=== PATIENT | female | born 1955 | race Caucasian/White ===

== ENCOUNTER → 2020-04-21 16:03 | Outpatient (CLI) | payer BC, SELFPAY ==
--- NOTE | ~2020-04-21 | MM_ITS ---
EXAMINATION: MM screening [facility] BI w abilio HISTORY: Screening mammogram TECHNIQUE: Craniocaudal and mediolateral oblique 3-D tomosynthesis images were obtained and synthetic 2-D images were generated. CAD analysis was submitted and interpreted. COMPARISON: 03/03/2019, 02/16/2018, 02/14/2017 bilateral digital screening mammogram examinations BREAST PARENCHYMAL COMPOSITION: There are scattered areas of fibroglandular density. FINDINGS: An intramammary lymph node is noted in the upper outer quadrant of each breast. Minimal oh ign calcification is noted. There is no evidence of suspicious mass, calcification, or architectural distortion to suggest malignancy in either breast. There has been no suspicious interval change. IMPRESSION: 1. No mammographic evidence of malignancy. 2. Recommend routine screening mammography in one year. BI-RADS Category 2: Benign finding(s). Reviewed, dictated and finalized at location A.
== END ==
PROVIDERS: PCP Internal Medicine; Visit Provider Obstetrics & Gynecology Gynecology
DX: Z12.31 Encounter for screening mammogram for malignant neoplasm of breast (principal)
CPT/HCPCS: 77063; 77067

== ENCOUNTER → 2020-08-30 12:05 | Outpatient (CLI) | payer BC, SELFPAY ==
--- NOTE | ~2020-08-30 | DEXA_ITS ---
Bone Density Report Name: Shreya Palomino Age: 64 Sex: Female Ethnicity: White Date of : 1955 Indication: postmenopausal; screening for osteoporosis; Referring Provider: MIGUEL MCKEON Study: Bone densitometry was performed. Exam Date: August 30, 2020 Accession number: [id number] Bone Density: Region BMD T-score Z-score Classification AP Spine (L1-L4) 1.109 0.6 2.2 Normal Femoral Neck (Left) 0.803 -0.4 1.0 Normal Total Hip (Left) 1.117 1.4 2.6 Normal Femoral Neck (Right) 0.807 -0.4 1.1 Normal Total Hip (Right) 1.102 1.3 2.5 Normal Total Hip Mean 1.110 1.4 2.6 Normal World Health Organization criteria for BMD impression classify patients as: Normal (T-score at or above -1.0), Osteopenia (T-score between -1.0 and -2.5), or Osteoporosis (T-score at or below -2.5). 10-year Fracture Risk: FRAX not reported because: All T-scores for Spine Total, Hip Total, Femoral Neck at or above -1.0 Previous Exams: Region Exam Age BMD T-score BMD Change BMD Change Date g/cm2 vs Baseline vs Previous AP Spine(L1-L4) 08/30/2020 64 1.109 0.6 -0.052* -0.001 02/10/2017 61 1.109 0.6 -0.051* -0.027* 01/30/2014 58 1.137 0.8 -0.024* -0.001 01/08/2010 54 1.138 0.8 -0.022 -0.022 12/24/2006 51 1.160 1.0 Total Hip(Left) 08/30/2020 64 1.117 1.4 0.019 0.062* 02/10/2017 61 1.055 0.9 -0.043* -0.029* 01/30/2014 58 1.084 1.2 -0.014 0.001 01/08/2010 54 1.083 1.2 -0.015 -0.015 12/24/2006 51 1.098 1.3 Total Hip(Right) 08/30/2020 64 1.102 1.3 -0.007 0.017 02/10/2017 61 1.085 1.2 -0.024 -0.044* 01/30/2014 58 1.128 1.5 0.020 0.041* 01/08/2010 54 1.088 1.2 -0.021 -0.021 12/24/2006 51 1.108 1.4 *Denotes significance at 95% confidence level, LSC for AP Spine = 0.022 g/cm2, LSC for Total Hip = 0.027 g/cm2 Clinical Information Provided by Patient: Has used the following medications: Vitamin D, Calcium, MTV Patient maximum height was 64.5 Menopause Age: 48 No regular weight bearing exercise Does not regularly consume dairy products Drinks caffeinated beverages Onset of menses at age 13 Number of children 2 Impression: The patient has normal bone mass. No significant bone lo
== END ==
PROVIDERS: PCP Internal Medicine; Visit Provider Obstetrics & Gynecology Gynecology
DX: Z78.0 Asymptomatic menopausal state (principal)
CPT/HCPCS: 77080

== ENCOUNTER → 2021-04-23 07:20 | Outpatient (CLI) | payer BC, SELFPAY ==
--- NOTE | ~2021-04-23 | MM_ITS ---
EXAMINATION: MM screening [facility] BI w abilio HISTORY: Screening TECHNIQUE: Craniocaudal and mediolateral oblique 3-D tomosynthesis images were obtained and synthetic 2-D images were generated. CAD analysis was submitted and interpreted. COMPARISON: Comparison to multiple prior studies sequentially, with oldest reviewed study dated 02/18. BREAST PARENCHYMAL COMPOSITION: There are scattered areas of fibroglandular density. FINDINGS: There is no evidence of suspicious mass, calcification, or architectural distortion to sugg est malignancy in either breast. There has been no suspicious interval change. IMPRESSION: 1. No mammographic evidence of malignancy. 2. Recommend routine screening mammography in one year. BI-RADS Category 1: Negative Reviewed, dictated and finalized at location A.
== END ==
PROVIDERS: PCP Internal Medicine; Visit Provider Obstetrics & Gynecology Gynecology
DX: Z12.31 Encounter for screening mammogram for malignant neoplasm of breast (principal)
CPT/HCPCS: 77063; 77067

== ENCOUNTER → 2022-04-25 16:05 | Outpatient (CLI) | payer BC, SELFPAY ==
--- NOTE | ~2022-04-25 | MM_ITS ---
EXAMINATION: MM screening [facility] BI w abilio HISTORY: Screening TECHNIQUE: Craniocaudal and mediolateral oblique 3-D tomosynthesis images were obtained and synthetic 2-D images were generated. CAD analysis was submitted and interpreted. COMPARISON: Comparison to multiple prior studies sequentially, with oldest reviewed study dated 02/18. BREAST PARENCHYMAL COMPOSITION: There are scattered areas of fibroglandular density. FINDINGS: There is no evidence of suspicious mass, calcification, or architectural distortion to sugg est malignancy in either breast. There has been no suspicious interval change. IMPRESSION: 1. No mammographic evidence of malignancy. 2. Recommend routine screening mammography in one year. BI-RADS Category 1: Negative Reviewed, dictated and finalized at location A.
== END ==
PROVIDERS: PCP Internal Medicine; Visit Provider Obstetrics & Gynecology Gynecology
DX: Z12.31 Encounter for screening mammogram for malignant neoplasm of breast (principal)
CPT/HCPCS: 77063; 77067

== ENCOUNTER → 2023-06-07 10:26 | Outpatient (CLI) | payer MEDICARE, SELFPAY ==
--- NOTE | ~2023-06-07 | MM_ITS ---
EXAMINATION: MM screening [facility] BI w abilio HISTORY: Screening mammogram TECHNIQUE: Craniocaudal and mediolateral oblique 3-D tomosynthesis images were obtained and synthetic 2-D images were generated. CAD analysis was submitted and interpreted. COMPARISON: 04/25/2022, 04/23/2021, 04/21/2020 bilateral screening mammogram examinations BREAST PARENCHYMAL COMPOSITION: There are scattered areas of fibroglandular density. FINDINGS: There is no evidence of suspicious mass, calcification, or architectural distortion to sugg est malignancy in either breast. There has been no suspicious interval change. IMPRESSION: 1. No mammographic evidence of malignancy. 2. Recommend routine screening mammography in one year. BI-RADS Category 1: Negative Reviewed, dictated and finalized at location A.
== END ==
PROVIDERS: PCP Internal Medicine; Visit Provider Obstetrics & Gynecology Gynecology
DX: Z12.31 Encounter for screening mammogram for malignant neoplasm of breast (principal)
CPT/HCPCS: 77063; 77067

== ENCOUNTER → 2023-06-26 09:58 | Outpatient (CLI) | payer MEDICARE, SELFPAY ==
--- NOTE | ~2023-06-26 | DEXA_ITS ---
Bone Density Report Name: JACKELYN FUENTES Age: 67 Sex: Female Ethnicity: White Date of : 1955 Indication: postmenopausal; screening for osteoporosis; height loss; Referring Provider: MIGUEL MCKEON Study: Bone densitometry was performed. Exam Date: June 26, 2023 Accession number: [id number] Bone Density: Region BMD T-score Z-score Classification AP Spine (L1-L4) 1.127 0.7 2.6 Normal Femoral Neck (Left) 0.752 -0.9 0.7 Normal Total Hip (Left) 1.138 1.6 2.9 Normal Femoral Neck (Right) 0.783 -0.6 1.0 Normal Total Hip (Right) 1.140 1.6 2.9 Normal Total Hip Mean 1.139 1.6 2.9 Normal World Health Organization criteria for BMD impression classify patients as: Normal (T-score at or above -1.0), Osteopenia (T-score between -1.0 and -2.5), or Osteoporosis (T-score at or below -2.5). 10-year Fracture Risk: FRAX not reported because: All T-scores for Spine Total, Hip Total, Femoral Neck at or above -1.0 Previous Exams: Region Exam Age BMD T-score BMD Change BMD Change Date g/cm2 vs Baseline vs Previous AP Spine(L1-L4) 06/26/2023 67 1.127 0.7 -0.034 0.018 08/30/2020 64 1.109 0.6 -0.052* -0.001 02/10/2017 61 1.109 0.6 -0.051* -0.027* 01/30/2014 58 1.137 0.8 -0.024* -0.001 01/08/2010 54 1.138 0.8 -0.022 -0.022 12/24/2006 51 1.160 1.0 Total Hip(Left) 06/26/2023 67 1.138 1.6 0.040 0.021 08/30/2020 64 1.117 1.4 0.019 0.062* 02/10/2017 61 1.055 0.9 -0.043* -0.029* 01/30/2014 58 1.084 1.2 -0.014 0.001 01/08/2010 54 1.083 1.2 -0.015 -0.015 12/24/2006 51 1.098 1.3 Total Hip(Right) 06/26/2023 67 1.140 1.6 0.032 0.039 08/30/2020 64 1.102 1.3 -0.007 0.017 02/10/2017 61 1.085 1.2 -0.024 -0.044* 01/30/2014 58 1.128 1.5 0.020 0.041* 01/08/2010 54 1.088 1.2 -0.021 -0.021 12/24/2006 51 1.108 1.4 *Denotes significance at 95% confidence level, LSC for AP Spine = 0.022 g/cm2, LSC for Total Hip = 0.027 g/cm2 Clinical Information Provided by Patient: Has used the following medications: Vitamin D, Calcium, MTV Patient maximum height was 65.0 Menopause Age: 48 No regular weight bearing exercise Drinks caffeinated beverages Onset of menses at age
== END ==
PROVIDERS: PCP Internal Medicine; Visit Provider Obstetrics & Gynecology Gynecology
DX: Z78.0 Asymptomatic menopausal state (principal)
CPT/HCPCS: 77080

== ENCOUNTER 2023-08-01 07:41 | Outpatient (CLI) | payer MEDICARE, SELFPAY ==
--- NOTE | ~2023-08-01 | CT_ITS ---
EXAMINATION: CT abdomen pelvis w con INDICATION: Abdominal pain TECHNIQUE: Computed tomographic images of the abdomen and pelvis were obtained after the administrati on of 100 cc of Omnipaque 350 intravenous contrast. The dose-length product (DLP) was 1200.28 mGy-cm. Automated exposure control and iterative reconstruction technique were employed. COMPARISON: 05/27/2019 FINDINGS: Minimal dependent atelectasis is present in the lung bases. The heart size is normal. Lord es of aortic and mitral valve replacement are noted. The liver, spleen, pancreas, gallbladder, and ad renal glands are normal. The kidneys are unremarkable. No pathologically enlarged abdominal or pelvic lymph nodes are identified. No free intraperitoneal gas or evidence of bowel obstruction. The append ix is normal. There is severe lumbar spondylosis. IMPRESSION: 1. No CT correlate for the patient's symptoms. Reviewed, dictated and finalized at location B. K PATCHER
[2023-08-01 08:09] LABS: Estimated Glomerular Filt Rate > 60
== END 2023-08-01 07:42 | disposition home or self-care (01) ==
PROVIDERS: PCP Internal Medicine; Visit Provider Internal Medicine
DX: R10.9 Unspecified abdominal pain (principal)
CPT/HCPCS: 74177; Q9967

== ENCOUNTER 2023-08-31 01:52 | Day surgery (SDC) | payer MEDICARE, SELFPAY ==
[2023-08-27 10:33] VITALS: BMI 34.0
--- NOTE | 2023-08-29 09:51 | SUR.PREOP ---
Patient called regarding upcoming procedure. Message left on patient's voicemail regarding preop instructions, appointment times, and procedure prep.
--- NOTE | 2023-08-30 17:49 | PM.HPGS ---
History of Present Illness History of Present Illness Consent: Risks, benefits, and alternatives have been discussed and questions answered. Patient agrees to proceed with procedure. Chief complaint: hx colon polyps Narrative: Shreya Palomino is a 67 year old female Referred for colon cancer screening. She has a history of colon polyps. Also she has a family history of colon cancer. A grandparent on 1 side Of the family, and a uncle on her other side had colon cancer. 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 Hiatal hernia Irritable bowel syndrome with constipation Low back pain Surgical History Surgical History History of section 1983,1984 History of elbow surgery 08/2018 History of gynecologic surgery 1982-Micro surgery on fallopian tubes. History of open heart surgery 2 valves 07/12/19 History of shoulder surgery 04/2018 History of sinus surgery 0217-6305 History of tubal ligation 3759-1064 Family History Family History Mother Family history of chronic obstructive pulmonary disease Grandparent Carcinoma of colon Father Family history of diabetes mellitus in first degree relative Family history of malignant neoplasm of brain Family history of heart disease in male family member before age 55 Sibling Family history of diabetes mellitus in first degree relative Family history of lung cancer Social History Social History Social History: Caffeine-coffee Smoking status: Never smoker Alcohol intake: never Substance use: never Substance use type: does not use Lack of Transportation: No Lack of Food: Never True Current Housing: I Have Housing Concerned About Future Housing: No Difficulty Paying Gas/Electric Bills: No Difficulty Paying for Meds: No Currently Unemployed: No Education: Associate Degree Difficulty w/ Childcare or Family Care: No Living arrangements: with family Additional living arrangements comments: , daughter and grandkids 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ucation: occupation Additional occupation/education comments: [employer] Gender identity (if verbalized by the patient): Female Spiritual care concerns: No Agree to blood products: Yes Meds Home Medications and Allergies Home Medications Medication Instructions Recorded Confirmed Type calcium phosphate,dibasic 77 1 tablet PO DAILY 10/10/19 08/31/23 History mg-vitamin D3 400 unit tablet cetirizine 10 mg capsule (Zyrtec) 10 mg PO DAILY 10/10/19 08/31/23 History multivitamin 1 tablet PO DAILY 10/10/19 08/31/23 History aspirin 81 mg tablet,delayed 81 mg PO DAILY 10/21/19 08/31/23 History release (Adult Low Dose Aspirin) fluticasone propionate 50 2 spray intranasal DAILY 10/21/19 08/31/23 History mcg/actuation nasal spray,suspension meloxicam 15 mg tablet 15 mg PO DAILY 10/21/19 08/31/23 History valacyclovir 500 mg tablet 500 mg PO DAILY 10/21/19 08/31/23 History (Valtrex) montelukast 10 mg tablet 10 mg PO DAILY 03/09/21 08/31/23 History cefdinir 300 mg capsule 300 mg PO Q12H 06/14/23 08/31/23 History esomeprazole magnesium 40 mg 40 mg PO DAILY 06/14/23 08/31/23 History capsule,delayed release losartan 100 mg tablet 50 mg PO DAILY 06/14/23 08/31/23 History rosuvastatin 20 mg tablet 20 mg PO DAILY 06/14/23 08/31/23 History azelastine 137 mcg (0.1 %) nasal 2 spray intranasal BID 08/27/23 08/31/23 History spray aerosol bisacodyl 5 mg tablet,delayed 10 mg PO HS 08/27/23 08/31/23 History release
[2023-08-31 09:12] VITALS: BP 141/85; PULSE 88; RESP 18; TEMP 35.9; O2SAT 97
[2023-08-31] MEDS: LACTATED RINGERS 1,000 ML 150 ML IV CONT (09:25)
[2023-08-31] MEDS: GENTAMICIN 80MG/SOD CHL 50 ML 80 MG/50 ML BAG 100 MG IVPB (09:32)
[2023-08-31] MEDS: AMPICILLIN 2 GM/NS 100 ML 2 GM/100 ML BAG IVPB (09:37)
--- NOTE | 2023-08-31 10:10 | WPDANESEPPF ---
Anes - Initial Pre Proc Eval Procedure: Operation Date: 08/31/23 10:30 Proposed Procedures p Colonoscopy - Ollie Blandon MD Date/Time: 08/31/23 10:10 Surgeon: Ollie Blandon MD Pre Op Diagnosis: hx colon polyps Patient Data Age: 67 Gender: F Height: 1.63 m Weight: 90.3 kg Last Vital Signs Temp 96.7 F L 08/31/23 09:12 Pulse 88 08/31/23 09:12 Resp 18 08/31/23 09:12 BP 141/85 H 08/31/23 09:12 Pulse Ox 97 08/31/23 09:12 O2 Del Method Room Air 08/31/23 09:12 Allergies Allergy/AdvReac Type Severity Reaction Status Date / Time amlodipine Allergy Intermediate Swelling Verified 08/31/23 09:09 Home Medications Medication Instructions Recorded Confirmed Type calcium phosphate,dibasic 77 1 tablet PO DAILY 10/10/19 08/31/23 History mg-vitamin D3 400 unit tablet cetirizine 10 mg capsule (Zyrtec) 10 mg PO DAILY 10/10/19 08/31/23 History multivitamin 1 tablet PO DAILY 10/10/19 08/31/23 History aspirin 81 mg tablet,delayed 81 mg PO DAILY 10/21/19 08/31/23 History release (Adult Low Dose Aspirin) fluticasone propionate 50 2 spray intranasal DAILY 10/21/19 08/31/23 History mcg/actuation nasal spray,suspension meloxicam 15 mg tablet 15 mg PO DAILY 10/21/19 08/31/23 History valacyclovir 500 mg tablet 500 mg PO DAILY 10/21/19 08/31/23 History (Valtrex) montelukast 10 mg tablet 10 mg PO DAILY 03/09/21 08/31/23 History cefdinir 300 mg capsule 300 mg PO Q12H 06/14/23 08/31/23 History esomeprazole magnesium 40 mg 40 mg PO DAILY 06/14/23 08/31/23 History capsule,delayed release losartan 100 mg tablet 50 mg PO DAILY 06/14/23 08/31/23 History rosuvastatin 20 mg tablet 20 mg PO DAILY 06/14/23 08/31/23 History azelastine 137 mcg (0.1 %) nasal 2 spray intranasal BID 08/27/23 08/31/23 History spray aerosol bisacodyl 5 mg tablet,delayed 10 mg PO HS 08/27/23 08/31/23 History release Patient hx anesthesia problems: none Family hx anesthesia problems: none Results Review: All pre-operative results and documents have been reviewed as part of the pre-operative evaluation. 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 Hiatal hernia Irritable bowel syndrome with constipation Low back pain Surgical History Surgical History History of section 1983,1984 History of elbow surgery 08/2018 History of gynecologic surgery 1982- surgery on fallopian tubes. History of open heart surgery 2 valves 07/12/19 History of shoulder surgery 04/2018 History of sinus surgery [id number] History of tubal ligation 9877-7024 Family History Family History Mother Family history of chronic obstructive pulmonary disease Grandparent Carcinoma of colon Father Family history of diabetes mellitus in first degree relative Family history of malignant neoplasm of brain Family history of heart disease in male family member before age 55 Sibling Family history of diabetes mellitus in first degree relative Family history of lung cancer Social History Social History Social History: Caffeine-coffee Smoking status: Never smoker Alcohol intake: never Substance use: never Substance use type: does not use Lack of Transportation: No Lack of Food: Never True Current Housing: I Have Housing Concerned About Future Housing: No Difficulty Paying Gas/Electric Bills: No Difficulty Paying for Meds: No Currently Unemployed: No Education: Associate Degree Difficulty w/ Childcare or Family Care: No Living arrangements: with family Additional living arrangements comments: , daughter and grandkids 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
[2023-08-31 10:34] VITALS: BP 98/64; PULSE 67; RESP 17; O2SAT 99
[2023-08-31 10:44] VITALS: BP 113/62; PULSE 64; RESP 18; O2SAT 100
[2023-08-31 10:54] VITALS: BP 112/72; PULSE 68; RESP 187; O2SAT 100
== END 2023-08-31 11:14 | disposition home or self-care (01) ==
PROVIDERS: PCP Internal Medicine; Visit Provider Internal Medicine Gastroenterology
PROC: 0DJD8ZZ Inspection of Lower Intestinal Tract, Via Natural or Artificial Opening Endoscopic (ICD-10-PCS; CPT 45378; principal; 2023-08-31 10:30)
DX: Z12.11 Encounter for screening for malignant neoplasm of colon (principal); K57.30 Diverticulosis of large intestine without perforation or abscess without bleeding; K64.8 Other hemorrhoids; Z86.010 Personal history of colon polyps; K58.1 Irritable bowel syndrome with constipation; Q23.1 Congenital insufficiency of aortic valve; Z79.82 Long term (current) use of aspirin; E66.9 Obesity, unspecified; Z68.34 Body mass index [BMI] 34.0-34.9, adult
CPT/HCPCS: G0105; J0290; J1580; J2704; J7120

== ENCOUNTER 2024-07-09 11:10 | Outpatient (CLI) | payer MEDICARE, SELFPAY ==
--- NOTE | ~2024-07-09 | MM_ITS ---
EXAMINATION: MM screening [facility] BI w abilio HISTORY: Screening TECHNIQUE: Craniocaudal and mediolateral oblique 3-D tomosynthesis images were obtained and synthetic 2-D images were generated. CAD analysis was submitted and interpreted. COMPARISON: Comparison to multiple prior studies sequentially, with oldest reviewed study dated 02/16. BREAST PARENCHYMAL COMPOSITION: Not dense: There are scattered areas of fibroglandular density. FINDINGS: There is no evidence of suspicious mass, calcification, or architectural distortion to sugg est malignancy in either breast. There has been no suspicious interval change. IMPRESSION: 1. No mammographic evidence of malignancy. 2. Recommend routine screening mammography in one year. BI-RADS Category 1: Negative Reviewed, dictated and finalized at location B.
== END 2024-07-09 11:11 | disposition home or self-care (01) ==
LOC: MICIMG 11:11
PROVIDERS: PCP Internal Medicine; Visit Provider Obstetrics & Gynecology Gynecology
DX: Z12.31 Encounter for screening mammogram for malignant neoplasm of breast (principal)
CPT/HCPCS: 77063; 77067

== ENCOUNTER 2025-02-04 00:27 | Day surgery (SDC) | payer MEDICARE, SELFPAY ==
[2025-01-30 10:35] VITALS: BMI 34.3
--- OUTSIDE RECORDS SUMMARY | 2025-02-04 00:30 | XMS_ITS | Encounter Summary ---
Author Organization [facility] Address [address] [place] [address] Phone Care Team Providers Care Supervisor Process Testing Name Role Phone Gilbert Aguirre MD Primary Care Provider [phone] Gilbert Aguirre MD Unavailable [phone] Helen Sharp RN Unavailable Unavailab Chris Munguia MD Unavailable [phone] Encounter Details Date Type Department Care Team (Late st Contact Info) Description 01/08/2025 Telephone [facility] Cardiology [address] [place] [address] [place] [address] Chris Priest MD [address] [place] [address] Social History Tobacco Use Types Packs/Day Years Used Date Smoking Tobacco: Never Passive Smoke Exposure: Past Smokeless Tobacco: Never Alcohol Use Standard Drinks/Week Comments No 0 (1 standard drink = 0.6 oz pur e alcohol) PHQ-2 Answer Date Recorded PHQ-2 Score 0 05/15/2019 Comments No Sex and Gender Information Value Date Recorded Sex Assigned at Not on file 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 Pt in agreement. * Telephone Encounter - Victoria rAaya - 01/08/2025 1:49 PM CDT Zayda Pt returning call in regards to Echo. She would like to know if you have anything for tomorrow morning. documented in this encounter Plan of Treatment Not on file documented as of this encounter Goals Goal Patient Goal Type Associated Problems Recent Progress Patient-Stated? Author [facility] Yes Jolly Broderick, EBER Note: Pt would like to be more active without a lot of pain. documented as of this encounter Visit Diagnoses Not on filedocumented in this encounter Care Teams Supervisor Process Testing Relationship Specialty Start Date End Date Gilbert Aguirre MD PCP - General 07/14/19 Gilbert Aguirre MD Internal Medicine 07/14/19 Helen Sharp, EBER Registered Nurse Pain Management 10/08/17 Chris Priest MD Household Appliance Installer Cardiology 07/09/19 documented as of this encounter
--- OUTSIDE RECORDS SUMMARY | 2025-02-04 00:30 | XMS_ITS | Encounter Summary ---
Author Organization [facility] [place] [facility] Address [address] [place] [address] Phone Care Team Providers Care Retail District Manager Name Role Phone Gilbert Aguirre MD Primary Care Provider [phone] Gilbert Aguirre MD Unavailable [phone] Helen Sharp RN Unavailable Unavailab Chris Munguia MD Unavailable [phone] Encounter Details Date Type Department Care Team (Late st Contact Info) Description 01/15/2025 Telephone [facility] Cardiology [address]th [place] [address] [place] [address] Chris Priest MD [address] [place] [address] Social History Tobacco Use Types [...] on file 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 I spoke with pt and awaiting input from his partner, and review per Dr. Priest. * Telephone Encounter - Mary Flores - 01/15/2025 10:09 AM CDT Zayda Pt would like a call back to get test results. Pls call. documented in this encounter Plan of Treatment Not on file documented as of this encounter Goals Goal Patient Goal Type Associated Problems Recent Progress Patient-Stated? Author BH-Pain Behavioral Health Yes Jolly Broderick, EBER Note: Pt would like to be more active without a lot of pain. documented as of this encounter Visit Diagnoses Not on filedocumented in this encounter Care Teams Retail District Manager Relationship Specialty Start Date End Date Gilbert Aguirre MD PCP - General 07/14/19 Gilbert Aguirre MD Internal Medicine 07/14/19 Helen Sharp, EBER Registered Nurse Pain Management 10/08/17 Chris Priest MD Center Medical And Lab Director Cardiology 07/09/19 documented as of this encounter
--- OUTSIDE RECORDS SUMMARY | 2025-02-04 00:30 | XMS_ITS | Encounter Summary ---
Author Organization [place] [facility] Address [address] [place] [address] Phone Care Team Providers Care Stone Mill Operator Name Role Phone Gilbert Aguirre MD Primary Care Provider [phone] Gilbert Aguirre MD Unavailable [phone] Helen Sharp RN Unavailable Unavailab Chris Munguia MD Unavailable [phone] Encounter Details Date Type Department Care Team (Late st Contact Info) Description 01/06/2025 Results Follow-Up [facility] Cardiology [address] [facility] [address] Medicine [address] [place] [address] [place] [address] Chris Priest MD [address] [place] [address] Social History Tobacco Use Types [...] on file 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 Author [facility] Yes Jolly Broderick, RN Note: Pt would like to be more active without a lot of pain. documented as of this encounter Visit Diagnoses Not on filedocumented in this encounter Care Teams Stone Mill Operator Relationship Specialty Start Date End Date Gilbert Aguirre MD PCP - General 07/14/19 Gilbert Aguirre MD Internal Medicine 07/14/19 Helen Sharp, EBER Registered Nurse Pain Management 10/08/17 Chris Priest MD Rn Research Cardiology 07/09/19 documented as of this encounter
--- OUTSIDE RECORDS SUMMARY | 2025-02-04 00:30 | XMS_ITS | Clinical Summary ---
Author Organization [facility] Address [address] [place] [address] Care Team Providers Care Customer Experience Manager Name Role Phone Gilbert Aguirre MD Primary Care Provider [phone] Gilbert Aguirre MD Unavailable [phone] Helen Sharp RN Unavailable Unavailab Chris Munguia MD Unavailable [phone] Allergies Active Allergy Reactions Criticality Noted Date Comments Amlodipine Other (See comments) Low 01/12/2020 swelling Cefpodoxime Rash Medium 07/21/2020 Ceftriaxone Rash Medium 05/12/2020 Developed rash after 5 weeks of IV ceftriaxone in 2019, also had a rash on thighs when on ceftriaxone for 1 week in 04/2020. Ceftriaxone/cephalospori ns not contraindicated in the future, but should be monitored (can trial co-treating with cetirizine if she needs cephalosporins in the future) Ipratropium Analogues Other (See comments) Low 05/10/2022 Creates odd odor Medications fluticasone (FLONASE) 50 mcg/actuation nasal spray INHALE 2 SPRAYS IN EACH NOSTRIL TWICE DAILY 3 03/18/20 18 Active valACYclovir (VALTREX) 500 mg tablet Take 1 tablet (500 mg total) by mouth daily Active cetirizine (ZyrTEC) 10 mg tablet Take 1 tablet (10 mg total) by mouth daily Active aspirin 81 mg enteric coated tabletIndicatio ns:prevention of thrombosis Take 1 tablet (81 mg total) by mouth daily 30 tablet 1 07/12/20 19 Active calcium carb/vit D3/minerals (CALCIUM PLUS ORAL) Take by mouth WITH VITAMIN D (2 TABS DAILY) Active multivitamin capsule Take 1 capsule by mouth daily Active acetaminophen (TYLENOL) 500 mg tabletIndicatio ns:Pain Take 1 tablet (500 mg total) by mouth every 4 (four) hours as needed for pain Active esomeprazole DR (NexIUM) 40 mg capsuleIndicati ons:GERD Take 1 capsule (40 mg total) by mouth daily before breakfast RX: 148890 Active montelukast (SINGULAIR) 10 mg tablet Take 1 tablet (10 mg total) by mouth daily 03/29/20 20 Active senna (SENOKOT) 8.6 mg tablet Take 1 tablet by mouth daily Active econazole 1 % cream as needed 09/22/20 20 Active rosuvastatin (CRESTOR) 20 mg tablet daily 04/07/20 21 Active meloxicam (MOBIC) 15 mg tablet 05/16/20 21 Active azelastine (ASTELIN) 137 mcg (0.1 %) nasal sprayIndication s:Perennial Allergic Rhinitis,Season al Allergic Rhinitis Administer 2 sprays into each nostril 2 (two) times a day as needed for rhinitis Use in each nostril as directed 90 mL 3 05/14/20 24 025 Active cefdinir (OMNICEF) 300 mg capsuleIndicati ons:Chronic Suppression Take 1 capsule (300 mg total) by mouth 2 (two) times a day 180 capsule 3 05/22/20 24 025 Active losartan (COZAAR) 50 mg tablet Take 1 tablet (50 mg total) by mouth 2 (two) times a day 180 tablet 3 06/10/20 24 025 Active amLODIPine (NORVASC) 5 mg tablet Take 1 tablet (5 mg total) by mouth daily 30 tablet 11 08/01/20 19 020 Discontinued Active Problems Problem Noted Date Diagnosed Date History of mitral valve repl acement with bioprosthetic valve 04/26/2022 Lumbar spine pain 07/18/2021 Allergic rhinitis 02/09/2021 Bilateral hearing loss 12/10/2020 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 Remains on IV vancomycin with some mild nausea but this is improving. No cardiopulmonary complaints. Did have some fevers and fatigue last week, seen in ED with negative blood cultures. These symptoms have now resolved - Continue IV vancomycin with plans for 6 weeks of therapy for treatment of bacteremia and prosthetic valve endocarditis. Do no stop prior to next ID follow up - Plan to place patient on intermediate suppressive antibiotic therapy after IV antibiotics are complete given 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 No obvious signs of endocarditis on TTE/ANYA or PET scan but given recurrence of infection with same organisms in the presence of bioprosthetic heart valves it is likely these are seeded. Benefits of intermediate suppression significantly outweigh the risks. Unfortunately, the Strep isolate is now intermediate to penicillins. Will likely need a intermediate flouroquinolone such as levofloxacin. Will reach out to micro fellow regarding inferred susceptibility to levofloxacin based on gatifloxacin susceptibility. - Discussed with patient the rational for treatment, culture results, risk of recurrent infection, signs/symptoms of recurrent infection, and to contact ID clinic with any questions or concerns Assessment & Plan (05/08/2020 8:53 AM CDT): The patient has Streptococcus bacteremia. 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 She underwent bioprosthetic aortic and mitral valve replacement last year for this complication. With recurrent streptococcal bacteremia, there is concerned about recurrent endocarditis involving the bioprosthetic valves. Transthoracic echocardiogram did not demonstrate any vegetation. ANYA did not demonstrate any vegetations. Still could have endocarditis with nidus too small to visualize any vegetations. No features of abscess on ANYA Responding to antibiotics with absence of any symptoms or fever. Would recommending discussion with ID about utility of PET-CT scan to evaluate for active inflammation/infection in heart/valves and spine to localize source of recurrent bacteremia with S mitus Also, check Panorex dental films (pt asymptomatic). Assessment & Plan (05/07/2020 7:44 AM CDT): The patient has Streptococcus bacteremia. 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 She underwent bioprosthetic aortic and mitral valve replacement last year for this complication. With recurrent streptococcal bacteremia, there is concerned about recurrent endocarditis involving the bioprosthetic valves. Transthoracic echocardiogram did not demonstrate any vegetation. Plans are for transesophageal echocardiogram today. Her NV interval is okay on telemetry. She has no features of heart failure. She has no significant valve dysfunction on echocardiogram yesterday. She is hemodynamically stable without any ongoing fevers at present. She is on antibiotics at the direction of the Infectious Disease Service. Await the results of the ANYA. H/O aortic valve replacement 09/12/2019 Assessment & Plan (10/16/2019 1:27 PM RESEARCH INSTRUCTOR): Patient meets criteria for pneumococcal vaccination given history of valvular disease and replacement. Vaccination given in clinic today. continuous churn buttermaker (current) use of antibiotics 9 Assessment & Plan (05/26/2020 2:04 PM CDT): - Continue weekly CBC and LFTs along with twice weekly BMP and Vanc rough while on IV vancomycin - Weekly PICC line care with dressing changes - Continue to monitor for adverse effects of antibiotics - Vancomycin can cause renal impairment, neutropenia, eosinophilia, DRESS, ototoxicity, and thrombocytopenia. Due to the side effects, CBC and BMP should be monitored weekly while on vancomycin. Dry cough 08/14/2019 Assessment & Plan (08/14/2019 2:00 PM RESEARCH INSTRUCTOR): Possibly viral/allergic Lungs clear to ausculation If the cough persists much longer, advised patient to check in with scientific laboratory supervisor to see if Cozaar might be contributing to the cough Elevated LFTs 06/29/2019 Assessment & Plan (07/10/2019 10:20 AM CDT): LFT's trending down-check CMP daily Elevated AST/ALT- Statin hold Assessment & Plan (07/03/2019 4:23 PM CDT): AST/ALT mildly elevated, AST 75/ALT 152/ALP 363. Possible septic emboli to liver. LFTs trending down. CT TAVR without liver abnormalities or e/o biliary obstruction. - Holding statin - Continue to trend Assessment & Plan (07/02/2019 2:01 PM CDT): AST/ALT mildly elevated, AST 75/ALT 152/ALP 363. Possible septic emboli to liver. LFTs trending down. CT TAVR without liver abnormalities or e/o biliary obstruction. - Holding statin - Continue to trend Assessment & Plan (07/01/2019 2:12 PM CDT): AST/ALT mildly elevated, AST 75/ALT 152/ALP 363. Possible septic emboli to liver. LFTs trending down. CT TAVR without liver abnormalities or e/o biliary obstruction. - Holding statin - Continue to trend Assessment & Plan (06/30/2019 3:05 PM CDT): AST/ALT mildly elevated, AST 75/ALT 152/ALP 363. Possible septic emboli to liver. LFTs trending down. CT TAVR without liver abnormalities or e/o biliary obstruction. - Holding statin - Continue to trend Assessment & Plan (06/29/2019 10:33 AM CDT): AST/ALT mildly elevated, AST 75/ALT 152/ALP 363. Possible septic emboli to liver. 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 06/25: TTE from 06/25 with AV + MV vegetation. 06/25: Blood cx: (+) Strep mitis 06/26: Blood cx NGTD 06/26 Spine biopsy NGTD. 06/27: Brain MRI noted multiple brain abscesses (largest 5x5mm) and leptomeningeal enhancement c/w meningitis Panorex negative. Assessment & Plan (05/28/2024 9:52 AM CDT): - Doing well on suppressive cefdinir with no acute issues today. 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 Plan to continue for the foreseeable future due to concern for seeding of prosthetic heart valves and history of recurrent infection with same organisms. - Discussed with patient the rational for treatment, culture results, risk of recurrent infection, signs/symptoms of recurrent infection, and to contact ID clinic with any questions or concerns Assessment & Plan (11/07/2023 1:58 PM RESEARCH INSTRUCTOR): - Doing well on suppressive cefdinir with no acute issues today. Her previous symptoms of abdominal pain, palpitations, and back pain have now resolved. 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 Plan to continue for the foreseeable future due to concern for seeding of prosthetic heart valves and history of recurrent infection with same organisms. - Discussed with patient the rational for treatment, culture results, risk of recurrent infection, signs/symptoms of recurrent infection, and to contact ID clinic with any questions or concerns Assessment & Plan (07/27/2023 8:55 AM CDT): - Her current symptoms do not appear to be consistent with recurrent endocarditis. She is having some abdominal pain and back pain. She did have vertebral osteomyelitis previously but has improvement on last imaging. She has no new neurologic symptoms or bowel/bladder issues that would indicate neurosurgical emergency. Work up to day includes labs (CBC, CMP, ESR, CRP, blood cultures x 2), urine studies (UA, gc/chlamydia, trichomonas) and bacterial vaginosis swab. If no acute findings on labs will have her monitor symptoms and if they do not improve by next week or if anything gets worse will plan to obtain CT abdomen/pelvis and lumbar spine w/ contrast. She is agreeable to plan - She will continue on cefdinir suppression for recurrent endocarditis. - Discussed with patient the rational for treatment, culture results, risk of recurrent infection, signs/symptoms of recurrent infection, and to contact ID clinic with any questions or concerns Assessment & Plan (10/13/2022 8:38 AM RESEARCH INSTRUCTOR): - Doing well on cefdinir suppression with no concern for recurrent infection. She continues to tolerate antibiotics well without any adverse effects or allergic reaction. She reports 100% compliance with antibiotics. 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 Plan to continue for the foreseeable future due to concern for seeding of prosthetic heart valves and history of recurrent infection with same organisms. - CBC and CMP ordered today. - Discussed with patient the rational for treatment, culture results, risk of recurrent infection, signs/symptoms of recurrent infection, and to contact ID clinic with any questions or concerns Assessment & Plan (12/29/2021 1:35 PM CDT): - Doing well on cefdinir suppression with no concern for recurrent infection. She continues to tolerate antibiotics well without any adverse effects or allergic reaction. She reports 100% compliance with antibiotics. 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 Plan to continue for the foreseeable future due to concern for seeding of prosthetic heart valves and history of recurrent infection with same organisms. - CBC and CMP ordered today. - I asked that she contact her scientific laboratory supervisor (Dr. Priest) if she continues to have palpitations. We discussed that if she develops palpitations with other concerning symptoms, such as syncope, lightheadedness, dizziness, etc she should seek emergent care. - Discussed with patient the rational for treatment, culture results, risk of recurrent infection, signs/symptoms of recurrent infection, and to contact ID clinic with any questions or concerns Assessment & Plan (06/28/2021 12:29 PM CDT): - Doing well on cefdinir suppression with no concern for recurrent infection. She continues to tolerate antibiotics well without any adverse effects or allergic reaction. She reports 100% compliance with antibiotics. 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 Plan to continue for the foreseeable future due to concern for seeding of prosthetic heart valves and history of recurrent infection with same organisms. - Most recent CBC and CMP reviewed. No changes to current antibiotic dose - Discussed with patient the rational for treatment, culture results, risk of recurrent infection, signs/symptoms of recurrent infection, and to contact ID clinic with any questions or concerns Assessment & Plan (12/13/2020 2:37 PM CDT): - Doing well on cefdinir suppression with no concern for recurrent infection. She is tolerating antibiotics well without any adverse effects or allergic reaction - Continue cefdinir 300 mg PO BID for chronic suppression due to recurrent prosthetic valve endocarditis with retained bioprosthetic valves. Plan to continue for the foreseeable future as her infection recurred once antibiotics were previously stopped. - CBC and CMP ordered today for routine monitoring - Discussed with patient the rational for treatment, culture results, risk of recurrent infection, signs/symptoms of recurrent infection, and to contact ID clinic with any questions or concerns Assessment & Plan (08/12/2020 7:22 PM RESEARCH INSTRUCTOR): - Doing well on interview today with no concern for recurrent infection. She is tolerating cefpodoxime well without allergic reaction after desensitization by allergy/immunology - Continue cefpodoxime 200 mg PO BID for chronic suppression due to recurrent Strep mitis prosthetic valve endocarditis. Plan to continue indefinitely due to risk of recurrent infection - Compliance with antibiotics is important as if she misses more than 2 doses of cefpodoxime she will need repeat desensitization. - Discussed with patient the rational for treatment, culture results, risk of recurrent infection, signs/symptoms of recurrent infection, and to contact ID clinic with any questions or concerns Assessment & Plan (06/23/2020 1:58 PM CDT): - Doing well on IV vancomycin. No signs of active infection at this time. - Stop IV vancomycin today as she has completed planned 6 weeks of therapy for prosthetic valve endocarditis due to Strep mitis and bacteremia. PICC line pulled in clinic today by RN without complication - Start moxifloxacin 400 mg PO daily for chronic suppression due to recurrent prosthetic valve endocarditis. Plan to continue indefinitely as this is her 2nd episode of infection and she is very high risk for recurrent infection without suppressive antibiotics. Risks and benefits of meterman antibiotic suppression discussed, side effects of flouroquinolones discussed and all questions answered - EKG obtained in clinic today to evaluate QT as moxifloxacin can prolong QT interval. QTc within normal limits. Written order given to patient for repeat EKG in ~1 week at PCP office. - Discussed with patient the rational for treatment, culture results, risk of recurrent infection, signs/symptoms of recurrent infection, and to contact ID clinic with any questions or concerns Assessment & Plan (10/16/2019 1:26 PM RESEARCH INSTRUCTOR): Completed 7 weeks IV ceftriaxone from (06/26/2019 - 08/14/2019), then transitioned to Amoxicillin 1g PO TID x 2 months for continued therapy given extent and severity of infection. Mitral and aortic valves are bioprosthetic. No indication for chronic suppression. She is doing well off antibiotics. Patient advised of warning signs and symptoms: Please alert ID clinic of new fevers, shaking chills, soaking night sweats, chest pain, shortness of breath, low back pain, or joint swelling. 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 Patient has completed 7 weeks of IV Ceftriaxone D/C Ceftriaxone today PICC line removed in clinic Start oral amoxicillin 1g PO TID tonight, continue until followup for continued therapy of osteomyelitis/endocarditis RTC 2 months Assessment & Plan (07/24/2019 1:00 PM CDT): 63 year old woman, hx of bicuspid AOV w/ mod-severe stenosis, GERD, Oa, HTN, low back pain who initially developed worsening LBP in 05/2019 who was initially admitted for diskitis/OM of L 4-5 noted on OSH MRI. TTE from 06/25 with AV + MV vegetation. Blood cultures from admission (+) S mitis, repeat cultures on 06/26 NGTD. 06/26 Spine biopsy NGTD. 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 Panorex negative. ANYA with vegetation on MV. Underwent MVR & AVR (with bioprosthetic) on 07/04 with cultures finalized as NG. 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 Recommendations: - Continue ceftriaxone at current dosing until 08/07. - Then switch to oral amoxicillin 1g PO TID until followup for continued therapy of osteomyelitis/endocarditis -ESR CRP Today - Continue antibiotic therapy at current dose -Repeat CBC/CMP at next visit. -ID f/u with me in 3 weeks. Assessment & Plan (07/10/2019 10:22 AM CDT): ID following for strep mitis endocarditis- on Ceftriaxone 2gm q 12 hours PICC line placed OR cultures remain NGTD Assessment & Plan (07/07/2019 10:27 AM CDT): 07/04 Mitral valve cultures with abundant PMNs. AV with rare PMNs. Last blood culture on 06/26 NG. Last positive blood culture on 06/25 with strep mitis. - Ceftriaxone IV q 12 hours (TRANSPORTATION DRIVER dosing) X6 weeks 2 osteo of spine - consult ophthalmology to evaluate for concern of floaters (unable to dilate pupils at this time, will need to reconsult once pt condition allows for pupil dilation) - f/u cultures sent from OR-NGTD - ID following Assessment & Plan (07/06/2019 10:48 AM CDT): 07/04 Mitral valve cultures with abundant PMNs. AV with rare PMNs. Last blood culture on 06/26 NG. Last positive blood culture on 06/25 with strep mitis. - Ceftriaxone IV q 12 hours (TRANSPORTATION DRIVER dosing) X6 weeks 2/2 osteo of spine - consult ophthalmology to evaluate for concern of floaters (unable to dilate pupils at this time, will need to reconsult once pt condition allows for pupil dilation) - f/u cultures sent from [place] - ID following Assessment & Plan (07/05/2019 10:12 PM CDT): 07/04 Mitral valve cultures with abundant PMNs. AV with rare PMNs. Last blood culture on 06/26 NG. Last positive blood culture on 06/25 with strep mitis. Started on ceftriaxone & valacyclovir on 06/26. - Ceftriaxone IV q 12 hours (TRANSPORTATION DRIVER dosing) X6 weeks 2/2 osteo of spine - consult ophthalmology to evaluate for concern of floaters that began within the last 48 hours (unable to dilate pupils at this time, will need to reconsult once pt condition allows for pupil dilation) - NSGY following for brain abscess with rupture c/b meningitis - f/u cultures sent from [place] - appreciate any additional ID reqs Assessment & Plan (07/05/2019 8:07 AM CDT): S/p MVR and AVR for strep endocarditis involving bicuspid aortic valve and MV. Bioprosthetic valves placed. Rhythm stable. Plans for antibiotics and postop care. Assessment & Plan (07/04/2019 11:49 PM CDT): Febrile with temp up to 38.7 tonight, apap given. 07/04 Mitral valve cultures with abundant PMNs. AV with rare PMNs. Last blood culture on 06/26 NG. Last positive blood culture on 06/25 with strep mitis. Started on ceftriaxone & valacyclovir on 06/26. - Ceftriaxone IV q 12 hours (TRANSPORTATION DRIVER dosing) X6 weeks 2 osteo of spine - consult ophthalmology on 07/05 to evaluate for concern of floaters that began within the last 48 hours - NSGY following for brain abscess with rupture c/b meningitis - f/u cultures sent from [place] - appreciate any additional ID reqs Assessment & Plan (07/04/2019 5:20 PM CDT): - Ceftriaxone IV q 12 hours (TRANSPORTATION DRIVER dosing) X6 weeks 2/ osteo of spine - needs ophthalmology consult regarding floaters that began within the last 48 hours -f/u cultures sent from [place] -appreciate any additional ID reqs Assessment & Plan (07/03/2019 4:22 PM CDT): 06/25 BCx +strep mitis, 06/26 BCx NGTD. TTE: MV & AV vegetations. C/b L4-L5 discitis and brain septic emboli & meningitis. Bone bx 06/26 NGTD. Panorex neg. Carotid Dopplers negative. ANYA 10/04 showed 1 x 0.5cm vegetation on anterior leaflet of mitral valve and moderate thickening of that leaflet, mild MR, and bicuspic aortic valve with thickening of the leaflet tips and moderate AR and severe but no aortic root abscess. - Cardiac surgery consulted: CT TAVR & bMRI performed. Plan for MVR with possible AVR tomorrow. 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 Currently hemodyanmically stable. Pt with underlying moderately severe and moderate AR. Large vegetation on mitral valve almost 1 cm. I d/w Dr. Boothe and plans are for cardiac surgery to replace the aortic valve and possibly the mitral valve. I d/w pt also about types of prosthesis and she would accept bioprosthetic valves to avoid life-long anticoagulation accepting that the bioprosthesis may not be durable for her lifetime and reoperation could be required or transcatheter replacement could be a possibility also in the future. Pt awaiting surgery. She was told this would be tomorrow morning. Will contact Dr. Boothe for confirmation. Exam is stable. No recurrence of embolic events clinically. Will need PT/OT given back/disciitis and pain. Assessment & Plan (07/02/2019 1:59 PM CDT): 10/ BCx +strep mitis, 10/3 BCx NGTD. TTE: MV & AV vegetations. C/b L4-L5 discitis and brain septic emboli & meningitis. Bone bx 10/3 NGTD. Panorex neg. Carotid Dopplers negative. ANYA 10/04 showed 1 x 0.5cm vegetation on anterior leaflet of mitral valve and moderate thickening of that leaflet, mild MR, and bicuspic aortic valve with thickening of the leaflet tips and moderate AR and severe but no aortic root abscess. - Cardiac surgery consulted: CT TAVR & bMRI performed. Tentative plans for MVR with possible AVR Sunday. - ID following - Cont CTX 2g 12h for TRANSPORTATION DRIVER dosing Assessment & Plan (07/01/2019 2:10 PM CDT): 10/2 BCx +strep mitis, 10/3 BCx NGTD. TTE: MV & AV vegetations. C/b L4-L5 discitis and brain septic emboli & meningitis. Bone bx 10/3 NGTD. Panorex neg. Carotid Dopplers negative. ANYA 10/04 showed 1 x 0.5cm vegetation on anterior leaflet of mitral valve and moderate thickening of that leaflet, mild MR, and bicuspic aortic valve with thickening of the leaflet tips and moderate AR and severe but no aortic root abscess. - Cardiac surgery consulted: CT TAVR & bMRI performed. Tentative plans for MVR with possible AVR Sunday. 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 Currently hemodyanmically stable. Pt with underlying moderately severe and moderate AR. Large vegetation on mitral valve almost 1 cm. I d/w Dr. Boothe and plans are for cardiac surgery to replace the aortic valve and possibly the mitral valve. I d/w pt also about types of prosthesis and she would accept bioprosthetic valves to avoid life-long anticoagulation accepting that the bioprosthesis may not be durable for her lifetime and reoperation could be required or transcatheter replacement could be a possibility also in the future. Assessment & Plan (06/30/2019 3:07 PM CDT): 10 BCx +strep mitis, 10/3 BCx NGTD. TTE: MV & AV vegetations. C/b L4-L5 discitis and brain septic emboli & meningitis. Bone bx 10/3 NGTD. Panorex neg. Carotid Dopplers negative. - Cardiac surgery consulted: CT TAVR & bMRI performed. Possible MVR tomorrow. - ANYA today - ID following - Cont CTX 2g 12h for TRANSPORTATION DRIVER dosing Assessment & Plan (06/29/2019 10:20 AM CDT): 10/2 BCx +strep mitis, 10/3 BCx NGTD. TTE: MV & AV vegetations. C/b L4-L5 discitis and brain septic emboli & meningitis. Bone bx 10/3 NGTD. Panorex neg. - Cardiac surgery consulted: CT TAVR & bMRI performed, carotid dopplers pending - ANYA Mon - ID following - Cont CTX 2g 12h for TRANSPORTATION DRIVER dosing Assessment & Plan (06/28/2019 10:41 AM CDT): 06/25 BCx +strep mitis, 06/26 BCx NGTD. TTE: MV & AV vegetations. C/b L4-L5 discitis. Bone bx 06/26 NGTD. Panorex neg. - Cardiac surgery consulted: CT TAVR, bMRI, carotid dopplers - Cardiology c/s for ANYA Mon - ID following - Cont vanc/CTX Assessment & Plan (07/09/2019 1:07 PM CDT): Pt with hx of bicuspid AOV w/ mod-severe stenosis, GERD, Oa, HTN, low back pain who initially developed worsening LBP in 05/2019 who was initially admitted for diskitis/OM of L 4-5 noted on OSH MRI. TTE from 06/25 with AV + MV vegetation. Blood cultures from admission (+) S mitis, repeat cultures on 06/26 NGTD. 06/26 Spine biopsy NGTD. 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 Panorex negative. ANYA with vegetation on MV. Underwent MVR & AVR (with bioprosthetic) on 07/04 with cultures finalized as NG. Recommendations: - Continue antibiotic therapy at current dose - Repeat CBC, CMP (at least) weekly - Will continue to follow and make adjustments as necessary - Refer to s/o recs left in this note - Call with any questions Assessment & Plan (06/27/2019 10:25 AM CDT): Unclear source, c/f possible endocarditis. 06/25 BCx +strep. - Abx, BCx as above - TTE pending Eczema 06/25/2019 Essential hypertension 06/25/2019 Assessment & Plan (07/03/2019 4:23 PM CDT): BP soft, stable. - holding losartan Assessment & Plan (07/02/2019 2:00 PM CDT): BP soft, stable. - holding losartan Assessment & Plan (07/01/2019 2:10 PM CDT): BP soft, stable. - holding losartan Assessment & Plan (06/30/2019 3:01 PM CDT): BP soft, stable. - holding losartan Assessment & Plan (06/29/2019 10:29 AM CDT): BP soft, holding losartan Assessment & Plan (06/28/2019 10:42 AM CDT): BP soft, holding losartan Assessment & Plan (06/27/2019 10:25 AM CDT): BP soft, holding losartan Assessment & Plan (06/26/2019 5:20 AM CDT): Cont losartan Gastroesophageal reflux disease 06/25/2019 Assessment & Plan (07/04/2019 11:45 PM CDT): Home PPI - discontinue pepcid with extubation and then order PPI PO once patient extubated Assessment & Plan (07/04/2019 4:38 PM CDT): Home PPI Assessment & Plan (07/03/2019 4:23 PM CDT): - Cont PPI Assessment & Plan (07/02/2019 2:01 PM CDT): - Cont PPI Assessment & Plan (07/01/2019 2:13 PM CDT): - Cont PPI Assessment & Plan (06/28/2019 10:42 AM CDT): Cont PPI Assessment & Plan (06/27/2019 10:25 AM CDT): Cont PPI Assessment & Plan (06/26/2019 5:20 AM CDT): Cont PPI Hyperlipidemia 06/25/2019 Assessment & Plan (06/27/2019 10:26 AM CDT): Cont statin Assessment & Plan (06/26/2019 5:20 AM CDT): Cont statin Multiple benign melanocytic nevi 06/25/2019 Osteoarthritis 06/25/2019 Aortic valve regurgitation 06/25/2019 Assessment & Plan (07/10/2019 10:19 AM CDT): S/p bio AVR/MVR 07/04 for endocarditis Continue post operative care. Increase activity as tolerated- PT/OT- will most likely need acute rehab at discharge Continue ASA, statin and beta cony PICC placed for IVAB- intermediate Assessment & Plan (07/07/2019 10:20 AM CDT): S/p BIO AVR and BIO MVR. Post-op care to include: - asa/statin daily - Metoprolol 6.25mg BID - DVT ppx: SCDs to BLE and lovenox - continue ceftriaxone for endocarditis - GI ppx: PPI (home med) - Nutrition plan: regular diet - Bowel regimen: colace, miralax and senna - Adult dose insulin protocol for blood sugar management - PT to evaluate and treat Assessment & Plan (07/06/2019 5:00 PM CDT): S/p BIO AVR and BIO MVR. Post-op care to include: - asa/statin daily - initiate BB this evening if inotrope off - DVT ppx: SCDs to BLE and lovenox - infection ppx: vanc gordon-op completed - continue ceftriaxone for endocarditis - GI ppx: PPI - Nutrition plan: advance to cardiac diet - Bowel regimen: colace, miralax and senna, add suppository - Adult dose insulin protocol for blood sugar management - PT to evaluate and treat Assessment & Plan (07/05/2019 10:14 PM CDT): S/p BIO AVR and BIO MVR. Post-op care to include: - DVT ppx: SCDs to BLE and lovenox - infection ppx: gordon-op antibiotics - GI ppx: PPI - Nutrition plan: clears - Bowel regimen: colace, miralax and senna - Adult dose insulin protocol for blood sugar management - PT to evaluate and treat Assessment & Plan (07/03/2019 4:23 PM CDT): Has bicuspid aortic valve with AR and . Follows with Dr. Priest. TTE and ANYA with vegetations as above. - Tele given risk of heart block - Dr. Priest following Assessment & Plan (07/02/2019 2:01 PM CDT): Has bicuspid aortic valve with AR and . Follows with Dr. Priest. TTE and ANYA with vegetations as above. - Tele given risk of heart block - Dr. Priest following Assessment & Plan (07/01/2019 2:11 PM CDT): Has bicuspid aortic valve with AR and . Follows with Dr. Priest. TTE and ANYA as above with vegetations - Tele given risk of heart block - Dr. Priest following Assessment & Plan (06/30/2019 2:57 PM CDT): Has bicuspid aortic valve with AR. Follows with Dr. Priest. TTE as above with vegetations - ANYA to evaluate for aortic root abscess - Tele given risk of heart block - Dr. Priest informed & has seen the patient Assessment & Plan (06/29/2019 10:29 AM CDT): Has bicuspid aortic valve with AR. Follows with Dr. Priest -TTE as above with vegetations, will need ANYA to evaluate for aortic root abscess -Keep on tele given risk of heart block -Dr. Priest informed & saw the patient Assessment & Plan (06/28/2019 10:42 AM CDT): Has bicuspid aortic valve with AR. Follows with Dr. Priest -TTE as above with vegetations -Dr. Priest informed Assessment & Plan (06/27/2019 10:23 AM CDT): Has bicuspid aortic valve with AR. Follows with Dr. Priest -TTE to evaluate AV Assessment & Plan (06/26/2019 5:21 AM CDT): Has bicuspid aortic valve with AR. Follows with Dr. Priest -Due for TTE, will order as part of infectious work up Mitral valve insufficiency 06/25/2019 Overview (06/30/2019): Added automatically from request for surgery [id number] Assessment & Plan (07/08/2019 11:34 AM CDT): S/p MVR- see above Hyperglycemia 10/18/2018 Chronic bilateral low back pain without sciatica 07/05/2018 DDD (degenerative disc disease), lumbar L5-S1 Spondylosis of lumbar region without myelopathy or radiculopathy 07/05/2018 Nonrheumatic aortic valve regurgitation 12/26/19 18 Acute back pain 10/08/2017 Assessment & Plan (07/10/2019 10:17 AM CDT): Offer oral analgesia prn Osteomyelitis-lower back Back brace for comfort when OOB Assessment & Plan (07/07/2019 10:18 AM CDT): Acute on chronic back pain 2/2 L4-5 osteodiscitis. Back brace at bedside. Reports pain is tolerable when when laying down. -OXY PRN -Dilaudid as needed with physical therapy Assessment & Plan (07/06/2019 10:40 AM CDT): Acute on chronic back pain 2/2 L4-5 osteodiscitis. Back brace at bedside. Reports pain is tolerable when when laying down. -Attempt to stand and transfer to chair today -will give Dilaudid as needed during transition and will increase Oxy if needed to stay in the chair Assessment & Plan (07/03/2019 4:23 PM CDT): 2/2 discitis/osteomyelitis. No neuro deficits. - Pain control: APAP, tramadol, morphine PRN - Scheduled Miralax, Colace/Senna while on narcotics. Assessment & Plan (07/02/2019 2:00 PM CDT): 2/2 discitis/osteomyelitis. No neuro deficits. - Pain control: APAP, tramadol, morphine PRN - Scheduled Miralax, Colace/Senna while on narcotics. May need more aggressive regimen to resolve constipation. Assessment & Plan (07/01/2019 2:11 PM CDT): 2/2 discitis/osteomyelitis. No neuro deficits. - Pain control: APAP, tramadol, morphine PRN - Schedule bowel regimen while on narcotics Assessment & Plan (06/30/2019 3:01 PM CDT): 2/2 discitis/osteomyelitis. No neuro deficits. - Pain control: APAP, tramadol, morphine PRN Assessment & Plan (06/29/2019 10:30 AM CDT): 2/2 discitis/osteomyelitis. No neuro deficits. - Pain control: APAP, tramadol, morphine Assessment & Plan (06/28/2019 10:42 AM CDT): 2/2 discitis/osteomyelitis. No neuro deficits. - Pain control: APAP, tramadol, morphine Assessment & Plan (06/27/2019 10:26 AM CDT): 2/2 discitis/osteomyelitis. No neuro deficits. - Pain control: APAP, tramadol, morphine Assessment & Plan (06/26/2019 5:30 AM CDT): Imaging concerning for discitis at L4/L5. Orthopedic surgery evaluated in the ED and no plans for OR. Neuro exam generally unremarkable. -NPO for bone biopsy. Holding ppx lovenox until then -BCx sent by ED, follow up -Antibiotics after bone biopsy -TTE to evaluate aortic valve - unclear where infection seeded from -PT/OT, L-spine precautions, q4h neuro checks Shortness of breath 06/19/2017 Well adult health check 06/07/2017 Aneurysm of ascending aorta 03/07/2011 Bicuspid aortic valve 03/07/2011 Palpitations 02/06/2011 Overview (01/04/2018): Description: Palpitations Aortic valve disease 02/06/2011 Overview (01/04/2018): Description: Aortic Valve Disorder Resolved Problems Problem Noted Date Diagnosed Date Resolved Date Viral upper respiratory tract infection 10/16/2019 02/09/2021 Assessment & Plan (10/16/2019 1:29 PM 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 She is afebrile. She has already had flu shot. Advise rest, hydration, and symptomatic management. Pruritic erythematous rash 08/14/2019 0 02/09/2021 Assessment & Plan (08/14/2019 1:57 PM RESEARCH INSTRUCTOR): Possible drug allergy, but appearance of rash is not classic. Will stop Ceftriaxone today. If rash persists after discontinuation of Ceftriaxone, she should notify ID clinic. She may continue Zyrtec until the rash is resolved. Severe malnutrition 07/09/2019 07/09/20 19 A-fib 07/07/2019 11/14/2023 Assessment & Plan (07/10/2019 10:18 AM CDT): PAF- currently NSR Decrease Amio to 200 daily Continue to monitor telemetry Daily EKG-QtC Assessment & Plan (07/07/2019 1:10 PM CDT): Pt with h/o a-fib pre-op. Pt into a-fib 90-110s this am. -amio bolus x1 -amio gtt @ 1mg/min -bmp 1300 -keep K > or equal 4.5 Acute blood loss anemia 07/07/201906/24 Assessment & Plan (07/07/2019 1:23 PM CDT): Hgb down trended yesterday but hemodynamically stable. Today BP a little soft with SBP 90-100s. -1u RBC now -CBC post transfusion Severe protein-calorie malnutrition 07/06/2019 11/14/2023 Assessment & Plan (07/09/2019 9:42 AM CDT): ASPEN/AND Malnutrition Screening: Acute illness or injury severe Patient Meets Criteria for Severe Malnutrition: Yes Present on admission due to prolong illness and immobility ASPEN Malnutrition Assessment: Acute Illness/Injury Severe Energy Intake: < or equal to 50% energy intake compared to estimated energy needs > (or equal to) 5 days Weight Loss: > 5% in 1 month(11%) Patient Meets Criteria for Severe Malnutrition: Yes Encourage intake Offer supplement Assessment & Plan (07/06/2019 9:21 PM CDT): concerned w/patients poor PO intake. Stated that she hasn't eaten well for 6 weeks prior to the procedure. Pt w/poor appetite - Changed to regular diet for less restrictions; Discussed bringing OSH food that patient enjoys eating - Dietitian consult for malnutrition assessment and recs Hypokalemia 07/05/2019 07/08/2019 Assessment & Plan (07/05/2019 11:45 PM CDT): 2/2 diuresis. K 3.8 - KCL 40 -f/u WBK Acute post-operative pain 07/04/2019 Assessment & Plan (07/07/2019 10:18 AM CDT): Acute post operative anticipated post CTSX via sternotomy and lumbar spine pain 2/2. - Tylenol scheduled - oxy 5 mg PRN - no specific spinal precautions per ortho spine noted, WBAT - LSO when OOB for comfort Assessment & Plan (07/06/2019 10:41 AM CDT): Acute post operative anticipated post CTSX via sternotomy and lumbar spine pain 2/2. - Tylenol scheduled - oxy 2.5 mg PRN - no specific spinal precautions per ortho spine noted, WBAT - LSO when OOB for comfort Assessment & Plan (07/05/2019 10:00 PM CDT): Acute post operative anticipated post CTSX via sternotomy and lumbar spine pain 2/2. - start Tylenol scheduled - oxy 2.5 mg PRN - no specific spinal precautions per ortho spine noted, WBAT - LSO when OOB for comfort Assessment & Plan (07/05/2019 12:59 AM CDT): Acute post operative anticipated post CTSX via sternotomy and lumbar spine pain 2/2. Currently intubated and sedated. - fentanyl PRN while intubated - wean propofol to off -once extubated, transition to enteral pain regimen - no specific spinal precautions per ortho spine noted, WBAT - LSO when OOB for comfort 2100: transitioned to precedex 2/2 agitation and tachypnea & discontinue fentanyl 2340: avoid additional narcotics until patient awake and alert Assessment & Plan (07/04/2019 4:59 PM CDT): Acute post operative anticipated post CTSX via sternotomy and lumbar spine pain 2/2. Currently intubated and sedated. -fentanyl PRN while intubated -once extubated, transition to enteral pain regimen -no specific spinal precautions per ortho spine noted, WBAT -LSO when OOB for comfort Cardiogenic shock 07/04/2019 07/08/2019 Overview (07/06/2019): S/p Bio AVR/MVR. Preop EF: 50-60. Post CPB ANYA on EPI @ 0.5mcg/kg/min with reported normal BiV function and no PVL. A/V EPW set VVI back up Assessment & Plan (07/06/2019 6:07 AM CDT): PA cath removed today. Epi wean initiated. Extremities warm and well perfused. - Continue Epi wean by 0.01 q 8 hours for ScV02 > 65% Assessment & Plan (07/05/2019 10:10 PM CDT): S/p Bio AVR/MVR. Preop EF: 50-60. Post CPB ANYA on EPI @ 0.5mcg/kg/min with reported normal BiV function and no PVL. A/V EPW set VVI back up. CI remains > 3 since arrival to ICU - wean epi 0.01 q 8hr for SCVO@ >65 -d/c PA cath - VVI backup - Hgb goal > 8 -diuresis for negative FBG Assessment & Plan (07/04/2019 11:53 PM CDT): S/p Bio AVR/MVR. Preop EF: 50-60. Today, post CPB ANYA on 0.5mcg/kg/min with reported normal BiV function and no PVL. ST 100s with A/V EPW set VVI back up. CI remains > 3 since arrival to ICU c/w distributive/septic picture with known infection. - hold epi at 0.05, consider wean after extubation if hemodynamically stable - ABG this evening with respiratory alkalosis and bicarb 20 -> give 500ml LR (2/2 lactic acidosis) and decrease Vt to 380 - VVI backup - Hgb goal > 8 [id number]|2025-02-04 00:30:00|2025-02-04 00:30:00|XMS_ITS|BKG DAEMON|External Medical Summaries|[id number]|" Referral Summary Created on: February 04, 2025 Shreya Basilio : 1955 Sex: Female Author Organization [facility] Address [address] [place] [address] Care Team Providers Care Customer Experience Manager Name Role Phone Gilbert Aguirre MD Primary Care Provider [phone] Gilbert Aguirre MD Unavailable [phone] Helen Sharp RN Unavailable Unavailab Chris Munguia MD Unavailable [phone] Encounters Date Type Department Care Team Description 01/15/2025 Telephone [facility] Cardiology [address] [facility] 8th [place] [address] [place] [phone] Chris Priest MD 01/13/2025 Telephone [facility] Cardiology [address] [facility] 8th [place] [address] [place] [address] Chris Priest MD Echo review 01/08/2025 Telephone [facility] Cardiology [address] [place] [address] 8th [place] [address] [place] [address] Chris Priest MD 01/08/2025 Results Follow-Up [facility] Cardiology [address] [place] [address] [place] [address] [place] [address] Chris Priest MD 01/08/2025 6:34 AM CDT - 01/08/2025 11:59 PM CDT Hospital Encounter [facility] [address] [place] [phone] H/O aortic valve replacement; Aneurysm of ascending aorta without rupture; Chest pain on breathing Discharge Disposition: Discharge to home or self care 01/06/2025 1:54 PM CDT - 01/06/2025 11:59 PM CDT Hospital Encounter [facility] [address] [place] [id number] Chris Priest MD Chest pain on breathing Discharge Disposition: Discharge to home or self care 01/06/2025 Results Follow-Up [facility] Cardiology [address] [place] [address] [place] [address] [place] [address] Chris Priest MD 01/06/2025 11:[address] [facility] [address] [place] [phone] Shortness of breath; High risk medications (not anticoagulants) long-term use 01/06/2025 12:30 PM CDT Office Visit [facility] Cardiology [address] [place] [address] [place] [address] [place] [address] Chris Priest MD Palpitations (Primary Dx); H/O aortic valve replacement; Essential hypertension; Aneurysm of ascending aorta without rupture; Chest pain on breathing 01/05/2025 Telephone [facility] Cardiology [address] [place] [address] [place] [address] Chris Priest MD Portal message with symptoms 11/12/2024 9:30 AM RESEARCH INSTRUCTOR Telemedicine [facility] Allergy and Immunology [address] [place] [address] Germaine Fraga MD 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 Ceftriaxone/cephalospori ns not contraindicated in the future, but should be monitored (can trial co-treating with cetirizine if she needs cephalosporins in the future) Ipratropium Analogues Other (See comments) Low 05/10/2022 Creates odd odor Medications fluticasone (FLONASE) 50 mcg/actuation nasal spray INHALE 2 SPRAYS IN EACH NOSTRIL TWICE DAILY 3 03/18/20 18 Active valACYclovir (VALTREX) 500 mg tablet Take 1 tablet (500 mg total) by mouth daily Active cetirizine (ZyrTEC) 10 mg tablet Take 1 tablet (10 mg total) by mouth daily Active aspirin 81 mg enteric coated tabletIndicatio ns:prevention of thrombosis Take 1 tablet (81 mg total) by mouth daily 30 tablet 1 07/12/20 19 Active calcium carb/vit D3/minerals (CALCIUM PLUS ORAL) Take by mouth WITH VITAMIN D (2 TABS DAILY) Active multivitamin capsule Take 1 capsule by mouth daily Active acetaminophen (TYLENOL) 500 mg tabletIndicatio ns:Pain Take 1 tablet (500 mg total) by mouth every 4 (four) hours as needed for pain Active esomeprazole DR (NexIUM) 40 mg capsuleIndicati ons:GERD Take 1 capsule (40 mg total) by mouth daily before breakfast RX: [id number] Active montelukast (SINGULAIR) 10 mg tablet Take 1 tablet (10 mg total) by mouth daily 03/29/20 20 Active senna (SENOKOT) 8.6 mg tablet Take 1 tablet by mouth daily Active econazole 1 % cream as needed 09/22/20 20 Active rosuvastatin (CRESTOR) 20 mg tablet daily 04/07/20 21 Active meloxicam (MOBIC) 15 mg tablet 05/16/20 21 Active azelastine (ASTELIN) 137 mcg (0.1 %) nasal sprayIndication s:Perennial Allergic Rhinitis,Season al Allergic Rhinitis Administer 2 sprays into each nostril 2 (two) times a day as needed for rhinitis Use in each nostril as directed 90 mL 3 05/14/20 24 025 Active cefdinir (OMNICEF) 300 mg capsuleIndicati ons:Chronic Suppression Take 1 capsule (300 mg total) by mouth 2 (two) times a day 180 capsule 3 05/22/20 24 025 Active losartan (COZAAR) 50 mg tablet Take 1 tablet (50 mg total) by mouth 2 (two) times a day 180 tablet 3 06/10/20 24 025 Active amLODIPine (NORVASC) 5 mg tablet Take 1 tablet (5 mg total) by mouth daily 30 tablet 11 08/01/20 19 020 Discontinued Active Problems Problem Noted Date Diagnosed Date History of mitral valve repl acement with bioprosthetic valve 04/26/2022 Lumbar spine pain 07/18/2021 Allergic rhinitis 02/09/2021 Bilateral hearing loss 12/10/2020 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 Remains on IV vancomycin with some mild nausea but this is improving. No cardiopulmonary complaints. Did have some fevers and fatigue last week, seen in ED with negative blood cultures. These symptoms have now resolved - Continue IV vancomycin with plans for 6 weeks of therapy for treatment of bacteremia and prosthetic valve endocarditis. Do no stop prior to next ID follow up - Plan to place patient on intermediate suppressive antibiotic therapy after IV antibiotics are complete given 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 No obvious signs of endocarditis on TTE/ANYA or PET scan but given recurrence of infection with same organisms in the presence of bioprosthetic heart valves it is likely these are seeded. Benefits of meterman suppression significantly outweigh the risks. Unfortunately, the Strep isolate is now intermediate to penicillins. Will likely need a intermediate flouroquinolone such as levofloxacin. Will reach out to micro fellow regarding inferred susceptibility to levofloxacin based on gatifloxacin susceptibility. - Discussed with patient the rational for treatment, culture results, risk of recurrent infection, signs/symptoms of recurrent infection, and to contact ID clinic with any questions or concerns Assessment & Plan (05/08/2020 8:53 AM CDT): The patient has Streptococcus bacteremia. 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 She underwent bioprosthetic aortic and mitral valve replacement last year for this complication. With recurrent streptococcal bacteremia, there is concerned about recurrent endocarditis involving the bioprosthetic valves. Transthoracic echocardiogram did not demonstrate any vegetation. ANYA did not demonstrate any vegetations. Still could have endocarditis with nidus too small to visualize any vegetations. No features of abscess on ANYA Responding to antibiotics with absence of any symptoms or fever. Would recommending discussion with ID about utility of PET-CT scan to evaluate for active inflammation/infection in heart/valves and spine to localize source of recurrent bacteremia with S mitus Also, check Panorex dental films (pt asymptomatic). Assessment & Plan (05/07/2020 7:44 AM CDT): The patient has Streptococcus bacteremia. 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 She underwent bioprosthetic aortic and mitral valve replacement last year for this complication. With recurrent streptococcal bacteremia, there is concerned about recurrent endocarditis involving the bioprosthetic valves. Transthoracic echocardiogram did not demonstrate any vegetation. Plans are for transesophageal echocardiogram today. Her NV interval is okay on telemetry. She has no features of heart failure. She has no significant valve dysfunction on echocardiogram yesterday. She is hemodynamically stable without any ongoing fevers at present. She is on antibiotics at the direction of the Infectious Disease Service. Await the results of the ANYA. H/O aortic valve replacement 09/12/2019 Assessment & Plan (10/16/2019 1:27 PM RESEARCH INSTRUCTOR): Patient meets criteria for pneumococcal vaccination given history of valvular disease and replacement. Vaccination given in clinic today. continuous churn buttermaker (current) use of antibiotics 9 Assessment & Plan (05/26/2020 2:04 PM CDT): - Continue weekly CBC and LFTs along with twice weekly BMP and Vanc rough while on IV vancomycin - Weekly PICC line care with dressing changes - Continue to monitor for adverse effects of antibiotics - Vancomycin can cause renal impairment, neutropenia, eosinophilia, DRESS, ototoxicity, and thrombocytopenia. Due to the side effects, CBC and BMP should be monitored weekly while on vancomycin. Dry cough 08/14/2019 Assessment & Plan (08/14/2019 2:00 PM RESEARCH INSTRUCTOR): Possibly viral/allergic Lungs clear to ausculation If the cough persists much longer, advised patient to check in with scientific laboratory supervisor to see if Cozaar might be contributing to the cough Elevated LFTs 06/29/2019 Assessment & Plan (07/10/2019 10:20 AM CDT): LFT's trending down-check CMP daily Elevated AST/ALT- Statin hold Assessment & Plan (07/03/2019 4:23 PM CDT): AST/ALT mildly elevated, AST 75/ALT 152/ALP 363. Possible septic emboli to liver. LFTs trending down. CT TAVR without liver abnormalities or e/o biliary obstruction. - Holding statin - Continue to trend Assessment & Plan (07/02/2019 2:01 PM CDT): AST/ALT mildly elevated, AST 75/ALT 152/ALP 363. Possible septic emboli to liver. LFTs trending down. CT TAVR without liver abnormalities or e/o biliary obstruction. - Holding statin - Continue to trend Assessment & Plan (07/01/2019 2:12 PM CDT): AST/ALT mildly elevated, AST 75/ALT 152/ALP 363. Possible septic emboli to liver. LFTs trending down. CT TAVR without liver abnormalities or e/o biliary obstruction. - Holding statin - Continue to trend Assessment & Plan (06/30/2019 3:05 PM CDT): AST/ALT mildly elevated, AST 75/ALT 152/ALP 363. Possible septic emboli to liver. LFTs trending down. CT TAVR without liver abnormalities or e/o biliary obstruction. - Holding statin - Continue to trend Assessment & Plan (06/29/2019 10:33 AM CDT): AST/ALT mildly elevated, AST 75/ALT 152/ALP 363. Possible septic emboli to liver. 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 06/25: TTE from 06/25 with AV + MV vegetation. 06/25: Blood cx: (+) Strep mitis 06/26: Blood cx NGTD 06/26 Spine biopsy NGTD. 06/27: Brain MRI noted multiple brain abscesses (largest 5x5mm) and leptomeningeal enhancement c/w meningitis Panorex negative. Assessment & Plan (05/28/2024 9:52 AM CDT): - Doing well on suppressive cefdinir with no acute issues today. 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 Plan to continue for the foreseeable future due to concern for seeding of prosthetic heart valves and history of recurrent infection with same organisms. - Discussed with patient the rational for treatment, culture results, risk of recurrent infection, signs/symptoms of recurrent infection, and to contact ID clinic with any questions or concerns Assessment & Plan (11/07/2023 1:58 PM RESEARCH INSTRUCTOR): - Doing well on suppressive cefdinir with no acute issues today. Her previous symptoms of abdominal pain, palpitations, and back pain have now resolved. 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 Plan to continue for the foreseeable future due to concern for seeding of prosthetic heart valves and history of recurrent infection with same organisms. - Discussed with patient the rational for treatment, culture results, risk of recurrent infection, signs/symptoms of recurrent infection, and to contact ID clinic with any questions or concerns Assessment & Plan (07/27/2023 8:55 AM CDT): - Her current symptoms do not appear to be consistent with recurrent endocarditis. She is having some abdominal pain and back pain. She did have vertebral osteomyelitis previously but has improvement on last imaging. She has no new neurologic symptoms or bowel/bladder issues that would indicate neurosurgical emergency. Work up to day includes labs (CBC, CMP, ESR, CRP, blood cultures x 2), urine studies (UA, gc/chlamydia, trichomonas) and bacterial vaginosis swab. If no acute findings on labs will have her monitor symptoms and if they do not improve by next week or if anything gets worse will plan to obtain CT abdomen/pelvis and lumbar spine w/ contrast. She is agreeable to plan - She will continue on cefdinir suppression for recurrent endocarditis. - Discussed with patient the rational for treatment, culture results, risk of recurrent infection, signs/symptoms of recurrent infection, and to contact ID clinic with any questions or concerns Assessment & Plan (10/13/2022 8:38 AM RESEARCH INSTRUCTOR): - Doing well on cefdinir suppression with no concern for recurrent infection. She continues to tolerate antibiotics well without any adverse effects or allergic reaction. She reports 100% compliance with antibiotics. 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 Plan to continue for the foreseeable future due to concern for seeding of prosthetic heart valves and history of recurrent infection with same organisms. - CBC and CMP ordered today. - Discussed with patient the rational for treatment, culture results, risk of recurrent infection, signs/symptoms of recurrent infection, and to contact ID clinic with any questions or concerns Assessment & Plan (12/29/2021 1:35 PM CDT): - Doing well on cefdinir suppression with no concern for recurrent infection. She continues to tolerate antibiotics well without any adverse effects or allergic reaction. She reports 100% compliance with antibiotics. 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 Plan to continue for the foreseeable future due to concern for seeding of prosthetic heart valves and history of recurrent infection with same organisms. - CBC and CMP ordered today. - I asked that she contact her scientific laboratory supervisor (Dr. Priest) if she continues to have palpitations. We discussed that if she develops palpitations with other concerning symptoms, such as syncope, lightheadedness, dizziness, etc she should seek emergent care. - Discussed with patient the rational for treatment, culture results, risk of recurrent infection, signs/symptoms of recurrent infection, and to contact ID clinic with any questions or concerns Assessment & Plan (06/28/2021 12:29 PM CDT): - Doing well on cefdinir suppression with no concern for recurrent infection. She continues to tolerate antibiotics well without any adverse effects or allergic reaction. She reports 100% compliance with antibiotics. 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 Plan to continue for the foreseeable future due to concern for seeding of prosthetic heart valves and history of recurrent infection with same organisms. - Most recent CBC and CMP reviewed. No changes to current antibiotic dose - Discussed with patient the rational for treatment, culture results, risk of recurrent infection, signs/symptoms of recurrent infection, and to contact ID clinic with any questions or concerns Assessment & Plan (12/13/2020 2:37 PM CDT): - Doing well on cefdinir suppression with no concern for recurrent infection. She is tolerating antibiotics well without any adverse effects or allergic reaction - Continue cefdinir 300 mg PO BID for chronic suppression due to recurrent prosthetic valve endocarditis with retained bioprosthetic valves. Plan to continue for the foreseeable future as her infection recurred once antibiotics were previously stopped. - CBC and CMP ordered today for routine monitoring - Discussed with patient the rational for treatment, culture results, risk of recurrent infection, signs/symptoms of recurrent infection, and to contact ID clinic with any questions or concerns Assessment & Plan (08/12/2020 7:22 PM RESEARCH INSTRUCTOR): - Doing well on interview today with no concern for recurrent infection. She is tolerating cefpodoxime well without allergic reaction after desensitization by allergy/immunology - Continue cefpodoxime 200 mg PO BID for chronic suppression due to recurrent Strep mitis prosthetic valve endocarditis. Plan to continue indefinitely due to risk of recurrent infection - Compliance with antibiotics is important as if she misses more than 2 doses of cefpodoxime she will need repeat desensitization. - Discussed with patient the rational for treatment, culture results, risk of recurrent infection, signs/symptoms of recurrent infection, and to contact ID clinic with any questions or concerns Assessment & Plan (06/23/2020 1:58 PM CDT): - Doing well on IV vancomycin. No signs of active infection at this time. - Stop IV vancomycin today as she has completed planned 6 weeks of therapy for prosthetic valve endocarditis due to Strep mitis and bacteremia. PICC line pulled in clinic today by RN without complication - Start moxifloxacin 400 mg PO daily for chronic suppression due to recurrent prosthetic valve endocarditis. Plan to continue indefinitely as this is her 2nd episode of infection and she is very high risk for recurrent infection without suppressive antibiotics. Risks and benefits of meterman antibiotic suppression discussed, side effects of flouroquinolones discussed and all questions answered - EKG obtained in clinic today to evaluate QT as moxifloxacin can prolong QT interval. QTc within normal limits. Written order given to patient for repeat EKG in ~1 week at PCP office. - Discussed with patient the rational for treatment, culture results, risk of recurrent infection, signs/symptoms of recurrent infection, and to contact ID clinic with any questions or concerns Assessment & Plan (10/16/2019 1:26 PM RESEARCH INSTRUCTOR): Completed 7 weeks IV ceftriaxone from (06/26/2019 - 08/14/2019), then transitioned to Amoxicillin 1g PO TID x 2 months for continued therapy given extent and severity of infection. Mitral and aortic valves are bioprosthetic. No indication for chronic suppression. She is doing well off antibiotics. Patient advised of warning signs and symptoms: Please alert ID clinic of new fevers, shaking chills, soaking night sweats, chest pain, shortness of breath, low back pain, or joint swelling. 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 Patient has completed 7 weeks of IV Ceftriaxone D/C Ceftriaxone today PICC line removed in clinic Start oral amoxicillin 1g PO TID tonight, continue until followup for continued therapy of osteomyelitis/endocarditis RTC 2 months Assessment & Plan (07/24/2019 1:00 PM CDT): 63 year old woman, hx of bicuspid AOV w/ mod-severe stenosis, GERD, Oa, HTN, low back pain who initially developed worsening LBP in 05/2019 who was initially admitted for diskitis/OM of L 4-5 noted on OSH MRI. TTE from 06/25 with AV + MV vegetation. Blood cultures from admission (+) S mitis, repeat cultures on 06/26 NGTD. 06/26 Spine biopsy NGTD. 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 Panorex negative. ANYA with vegetation on MV. Underwent MVR & AVR (with bioprosthetic) on 07/04 with cultures finalized as NG. 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 Recommendations: - Continue ceftriaxone at current dosing until 08/07. - Then switch to oral amoxicillin 1g PO TID until followup for continued therapy of osteomyelitis/endocarditis -ESR CRP Today - Continue antibiotic therapy at current dose -Repeat CBC/CMP at next visit. -ID f/u with me in 3 weeks. Assessment & Plan (07/10/2019 10:22 AM CDT): ID following for strep mitis endocarditis- on Ceftriaxone 2gm q 12 hours PICC line placed OR cultures remain NGTD Assessment & Plan (07/07/2019 10:27 AM CDT): 07/04 Mitral valve cultures with abundant PMNs. AV with rare PMNs. Last blood culture on 06/26 NG. Last positive blood culture on 06/25 with strep mitis. - Ceftriaxone IV q 12 hours (TRANSPORTATION DRIVER dosing) X6 weeks 22 osteo of spine - consult ophthalmology to evaluate for concern of floaters (unable to dilate pupils at this time, will need to reconsult once pt condition allows for pupil dilation) - f/u cultures sent from OR-NGTD - ID following Assessment & Plan (07/06/2019 10:48 AM CDT): 07/04 Mitral valve cultures with abundant PMNs. AV with rare PMNs. Last blood culture on 06/26 NG. Last positive blood culture on 06/25 with strep mitis. - Ceftriaxone IV q 12 hours (TRANSPORTATION DRIVER dosing) X6 weeks 2 osteo of spine - consult ophthalmology to evaluate for concern of floaters (unable to dilate pupils at this time, will need to reconsult once pt condition allows for pupil dilation) - f/u cultures sent from [place] - ID following Assessment & Plan (07/05/2019 10:12 PM CDT): 07/04 Mitral valve cultures with abundant PMNs. AV with rare PMNs. Last blood culture on 06/26 NG. Last positive blood culture on 06/25 with strep mitis. Started on ceftriaxone & valacyclovir on 06/26. - Ceftriaxone IV q 12 hours (TRANSPORTATION DRIVER dosing) X6 weeks 22 osteo of spine - consult ophthalmology to evaluate for concern of floaters that began within the last 48 hours (unable to dilate pupils at this time, will need to reconsult once pt condition allows for pupil dilation) - NSGY following for brain abscess with rupture c/b meningitis - f/u cultures sent from [place] - appreciate any additional ID reqs Assessment & Plan (07/05/2019 8:07 AM CDT): S/p MVR and AVR for strep endocarditis involving bicuspid aortic valve and MV. Bioprosthetic valves placed. Rhythm stable. Plans for antibiotics and postop care. Assessment & Plan (07/04/2019 11:49 PM CDT): Febrile with temp up to 38.7 tonight, apap given. 07/04 Mitral valve cultures with abundant PMNs. AV with rare PMNs. Last blood culture on 06/26 NG. Last positive blood culture on 06/25 with strep mitis. Started on ceftriaxone & valacyclovir on 06/26. - Ceftriaxone IV q 12 hours (TRANSPORTATION DRIVER dosing) X6 weeks 10/26 osteo of spine - consult ophthalmology on 07/05 to evaluate for concern of floaters that began within the last 48 hours - NSGY following for brain abscess with rupture c/b meningitis - f/u cultures sent from OR - appreciate any additional ID reqs Assessment & Plan (07/04/2019 5:20 PM CDT): - Ceftriaxone IV q 12 hours (TRANSPORTATION DRIVER dosing) X6 weeks 10/26 osteo of spine - needs ophthalmology consult regarding floaters that began within the last 48 hours -f/u cultures sent from [place] -appreciate any additional ID reqs Assessment & Plan (07/03/2019 4:22 PM CDT): 06/25 BCx +strep mitis, 06/26 BCx NGTD. TTE: MV & AV vegetations. C/b L4-L5 discitis and brain septic emboli & meningitis. Bone bx 06/26 NGTD. Panorex neg. Carotid Dopplers negative. ANYA 10/04 showed 1 x 0.5cm vegetation on anterior leaflet of mitral valve and moderate thickening of that leaflet, mild MR, and bicuspic aortic valve with thickening of the leaflet tips and moderate AR and severe but no aortic root abscess. - Cardiac surgery consulted: CT TAVR & bMRI performed. Plan for MVR with possible AVR tomorrow. 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 Currently hemodyanmically stable. Pt with underlying moderately severe and moderate AR. Large vegetation on mitral valve almost 1 cm. I d/w Dr. Boothe and plans are for cardiac surgery to replace the aortic valve and possibly the mitral valve. I d/w pt also about types of prosthesis and she would accept bioprosthetic valves to avoid life-long anticoagulation accepting that the bioprosthesis may not be durable for her lifetime and reoperation could be required or transcatheter replacement could be a possibility also in the future. Pt awaiting surgery. She was told this would be tomorrow morning. Will contact Dr. Boothe for confirmation. Exam is stable. No recurrence of embolic events clinically. Will need PT/OT given back/disciitis and pain. Assessment & Plan (07/02/2019 1:59 PM CDT): 10 BCx +strep mitis, 10/3 BCx NGTD. TTE: MV & AV vegetations. C/b L4-L5 discitis and brain septic emboli & meningitis. Bone bx 10/3 NGTD. Panorex neg. Carotid Dopplers negative. ANYA 18 showed 1 x 0.5cm vegetation on anterior leaflet of mitral valve and moderate thickening of that leaflet, mild MR, and bicuspic aortic valve with thickening of the leaflet tips and moderate AR and severe but no aortic root abscess. - Cardiac surgery consulted: CT TAVR & bMRI performed. Tentative plans for MVR with possible AVR Sunday. - ID following - Cont CTX 2g 12h for TRANSPORTATION DRIVER dosing Assessment & Plan (07/01/2019 2:10 PM CDT): 10 BCx +strep mitis, 10/3 BCx NGTD. TTE: MV & AV vegetations. C/b L4-L5 discitis and brain septic emboli & meningitis. Bone bx 10/3 NGTD. Panorex neg. Carotid Dopplers negative. ANYA 18 showed 1 x 0.5cm vegetation on anterior leaflet of mitral valve and moderate thickening of that leaflet, mild MR, and bicuspic aortic valve with thickening of the leaflet tips and moderate AR and severe but no aortic root abscess. - Cardiac surgery consulted: CT TAVR & bMRI performed. Tentative plans for MVR with possible AVR Sunday. 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 Currently hemodyanmically stable. Pt with underlying moderately severe and moderate AR. Large vegetation on mitral valve almost 1 cm. I d/w Dr. Boothe and plans are for cardiac surgery to replace the aortic valve and possibly the mitral valve. I d/w pt also about types of prosthesis and she would accept bioprosthetic valves to avoid life-long anticoagulation accepting that the bioprosthesis may not be durable for her lifetime and reoperation could be required or transcatheter replacement could be a possibility also in the future. Assessment & Plan (06/30/2019 3:07 PM CDT): 10/2 BCx +strep mitis, 10/3 BCx NGTD. TTE: MV & AV vegetations. C/b L4-L5 discitis and brain septic emboli & meningitis. Bone bx 10 NGTD. Panorex neg. Carotid Dopplers negative. - Cardiac surgery consulted: CT TAVR & bMRI performed. Possible MVR tomorrow. - ANYA today - ID following - Cont CTX 2g 12h for TRANSPORTATION DRIVER dosing Assessment & Plan (06/29/2019 10:20 AM CDT): 10/2 BCx +strep mitis, 10/3 BCx NGTD. TTE: MV & AV vegetations. C/b L4-L5 discitis and brain septic emboli & meningitis. Bone bx 10/ NGTD. Panorex neg. - Cardiac surgery consulted: CT TAVR & bMRI performed, carotid dopplers pending - ANYA Mon - ID following - Cont CTX 2g 12h for TRANSPORTATION DRIVER dosing Assessment & Plan (06/28/2019 10:41 AM CDT): 10/2 BCx +strep mitis, 10/3 BCx NGTD. TTE: MV & AV vegetations. C/b L4-L5 discitis. Bone bx 10/3 NGTD. Panorex neg. - Cardiac surgery consulted: CT TAVR, bMRI, carotid dopplers - Cardiology c/s for ANYA Mon - ID following - Cont vanc/CTX Assessment & Plan (07/09/2019 1:07 PM CDT): Pt with hx of bicuspid AOV w/ mod-severe stenosis, GERD, Oa, HTN, low back pain who initially developed worsening LBP in 05/2019 who was initially admitted for diskitis/OM of L 4-5 noted on OSH MRI. TTE from 06/25 with AV + MV vegetation. Blood cultures from admission (+) S mitis, repeat cultures on 06/26 NGTD. 06/26 Spine biopsy NGTD. 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 Panorex negative. ANYA with vegetation on MV. Underwent MVR & AVR (with bioprosthetic) on 07/04 with cultures finalized as NG. Recommendations: - Continue antibiotic therapy at current dose - Repeat CBC, CMP (at least) weekly - Will continue to follow and make adjustments as necessary - Refer to s/o recs left in this note - Call with any questions Assessment & Plan (06/27/2019 10:25 AM CDT): Unclear source, c/f possible endocarditis. 06/25 BCx +strep. - Abx, BCx as above - TTE pending Eczema 06/25/2019 Essential hypertension 06/25/2019 Assessment & Plan (07/03/2019 4:23 PM CDT): BP soft, stable. - holding losartan Assessment & Plan (07/02/2019 2:00 PM CDT): BP soft, stable. - holding losartan Assessment & Plan (07/01/2019 2:10 PM CDT): BP soft, stable. - holding losartan Assessment & Plan (06/30/2019 3:01 PM CDT): BP soft, stable. - holding losartan Assessment & Plan (06/29/2019 10:29 AM CDT): BP soft, holding losartan Assessment & Plan (06/28/2019 10:42 AM CDT): BP soft, holding losartan Assessment & Plan (06/27/2019 10:25 AM CDT): BP soft, holding losartan Assessment & Plan (06/26/2019 5:20 AM CDT): Cont losartan Gastroesophageal reflux disease 06/25/2019 Assessment & Plan (07/04/2019 11:45 PM CDT): Home PPI - discontinue pepcid with extubation and then order PPI PO once patient extubated Assessment & Plan (07/04/2019 4:38 PM CDT): Home PPI Assessment & Plan (07/03/2019 4:23 PM CDT): - Cont PPI Assessment & Plan (07/02/2019 2:01 PM CDT): - Cont PPI Assessment & Plan (07/01/2019 2:13 PM CDT): - Cont PPI Assessment & Plan (06/28/2019 10:42 AM CDT): Cont PPI Assessment & Plan (06/27/2019 10:25 AM CDT): Cont PPI Assessment & Plan (06/26/2019 5:20 AM CDT): Cont PPI Hyperlipidemia 06/25/2019 Assessment & Plan (06/27/2019 10:26 AM CDT): Cont statin Assessment & Plan (06/26/2019 5:20 AM CDT): Cont statin Multiple benign melanocytic nevi 06/25/2019 Osteoarthritis 06/25/2019 Aortic valve regurgitation 06/25/2019 Assessment & Plan (07/10/2019 10:19 AM CDT): S/p bio AVR/MVR 07/04 for endocarditis Continue post operative care. Increase activity as tolerated- PT/OT- will most likely need acute rehab at discharge Continue ASA, statin and beta cony PICC placed for IVAB- intermediate Assessment & Plan (07/07/2019 10:20 AM CDT): S/p BIO AVR and BIO MVR. Post-op care to include: - asa/statin daily - Metoprolol 6.25mg BID - DVT ppx: SCDs to BLE and lovenox - continue ceftriaxone for endocarditis - GI ppx: PPI (home med) - Nutrition plan: regular diet - Bowel regimen: colace, miralax and senna - Adult dose insulin protocol for blood sugar management - PT to evaluate and treat Assessment & Plan (07/06/2019 5:00 PM CDT): S/p BIO AVR and BIO MVR. Post-op care to include: - asa/statin daily - initiate BB this evening if inotrope off - DVT ppx: SCDs to BLE and lovenox - infection ppx: vanc gordon-op completed - continue ceftriaxone for endocarditis - GI ppx: PPI - Nutrition plan: advance to cardiac diet - Bowel regimen: colace, miralax and senna, add suppository - Adult dose insulin protocol for blood sugar management - PT to evaluate and treat Assessment & Plan (07/05/2019 10:14 PM CDT): S/p BIO AVR and BIO MVR. Post-op care to include: - DVT ppx: SCDs to BLE and lovenox - infection ppx: gordon-op antibiotics - GI ppx: PPI - Nutrition plan: clears - Bowel regimen: colace, miralax and senna - Adult dose insulin protocol for blood sugar management - PT to evaluate and treat Assessment & Plan (07/03/2019 4:23 PM CDT): Has bicuspid aortic valve with AR and . Follows with Dr. Priest. TTE and ANYA with vegetations as above. - Tele given risk of heart block - Dr. Priest following Assessment & Plan (07/02/2019 2:01 PM CDT): Has bicuspid aortic valve with AR and . Follows with Dr. Priest. TTE and ANYA with vegetations as above. - Tele given risk of heart block - Dr. Priest following Assessment & Plan (07/01/2019 2:11 PM CDT): Has bicuspid aortic valve with AR and . Follows with Dr. Priest. TTE and ANYA as above with vegetations - Tele given risk of heart block - Dr. Priest following Assessment & Plan (06/30/2019 2:57 PM CDT): Has bicuspid aortic valve with AR. Follows with Dr. Priest. TTE as above with vegetations - ANYA to evaluate for aortic root abscess - Tele given risk of heart block - Dr. Priest informed & has seen the patient Assessment & Plan (06/29/2019 10:29 AM CDT): Has bicuspid aortic valve with AR. Follows with Dr. Priest -TTE as above with vegetations, will need ANYA to evaluate for aortic root abscess -Keep on tele given risk of heart block -Dr. Priest informed & saw the patient Assessment & Plan (06/28/2019 10:42 AM CDT): Has bicuspid aortic valve with AR. Follows with Dr. Priest -TTE as above with vegetations -Dr. Priest informed Assessment & Plan (06/27/2019 10:23 AM CDT): Has bicuspid aortic valve with AR. Follows with Dr. Priest -TTE to evaluate AV Assessment & Plan (06/26/2019 5:21 AM CDT): Has bicuspid aortic valve with AR. Follows with Dr. Priest -Due for TTE, will order as part of infectious work up Mitral valve insufficiency 06/25/2019 Overview (06/30/2019): Added automatically from request for surgery [id number] Assessment & Plan (07/08/2019 11:34 AM CDT): S/p MVR- see above Hyperglycemia 10/18/2018 Chronic bilateral low back pain without sciatica 07/05/2018 DDD (degenerative disc disease), lumbar L5-S1 Spondylosis of lumbar region without myelopathy or radiculopathy 07/05/2018 Nonrheumatic aortic valve regurgitation 12/26/19 18 Acute back pain 10/08/2017 Assessment & Plan (07/10/2019 10:17 AM CDT): Offer oral analgesia prn Osteomyelitis-lower back Back brace for comfort when OOB Assessment & Plan (07/07/2019 10:18 AM CDT): Acute on chronic back pain 2/2 L4-5 osteodiscitis. Back brace at bedside. Reports pain is tolerable when when laying down. -OXY PRN -Dilaudid as needed with physical therapy Assessment & Plan (07/06/2019 10:40 AM CDT): Acute on chronic back pain 2/2 L4-5 osteodiscitis. Back brace at bedside. Reports pain is tolerable when when laying down. -Attempt to stand and transfer to chair today -will give Dilaudid as needed during transition and will increase Oxy if needed to stay in the chair Assessment & Plan (07/03/2019 4:23 PM CDT): 2/2 discitis/osteomyelitis. No neuro deficits. - Pain control: APAP, tramadol, morphine PRN - Scheduled Miralax, Colace/Senna while on narcotics. Assessment & Plan (07/02/2019 2:00 PM CDT): 2/2 discitis/osteomyelitis. No neuro deficits. - Pain control: APAP, tramadol, morphine PRN - Scheduled Miralax, Colace/Senna while on narcotics. May need more aggressive regimen to resolve constipation. Assessment & Plan (07/01/2019 2:11 PM CDT): 2/2 discitis/osteomyelitis. No neuro deficits. - Pain control: APAP, tramadol, morphine PRN - Schedule bowel regimen while on narcotics Assessment & Plan (06/30/2019 3:01 PM CDT): 2/2 discitis/osteomyelitis. No neuro deficits. - Pain control: APAP, tramadol, morphine PRN Assessment & Plan (06/29/2019 10:30 AM CDT): 2/2 discitis/osteomyelitis. No neuro deficits. - Pain control: APAP, tramadol, morphine Assessment & Plan (06/28/2019 10:42 AM CDT): 2/2 discitis/osteomyelitis. No neuro deficits. - Pain control: APAP, tramadol, morphine Assessment & Plan (06/27/2019 10:26 AM CDT): 2/2 discitis/osteomyelitis. No neuro deficits. - Pain control: APAP, tramadol, morphine Assessment & Plan (06/26/2019 5:30 AM CDT): Imaging concerning for discitis at L4/L5. Orthopedic surgery evaluated in the ED and no plans for OR. Neuro exam generally unremarkable. -NPO for bone biopsy. Holding ppx lovenox until then -BCx sent by ED, follow up -Antibiotics after bone biopsy -TTE to evaluate aortic valve - unclear where infection seeded from -PT/OT, L-spine precautions, q4h neuro checks Shortness of breath 06/19/2017 Well adult health check 06/07/2017 Aneurysm of ascending aorta 03/07/2011 Bicuspid aortic valve 03/07/2011 Palpitations 02/06/2011 Overview (01/04/2018): Description: Palpitations Aortic valve disease 02/06/2011 Overview (01/04/2018): Description: Aortic Valve Disorder Resolved Problems Problem Noted Date Diagnosed Date Resolved Date Viral upper respiratory tract infection 10/16/2019 02/09/2021 Assessment & Plan (10/16/2019 1:29 PM 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 She is afebrile. She has already had flu shot. Advise rest, hydration, and symptomatic management. Pruritic erythematous rash 08/14/2019 0 02/09/2021 Assessment & Plan (08/14/2019 1:57 PM RESEARCH INSTRUCTOR): Possible drug allergy, but appearance of rash is not classic. Will stop Ceftriaxone today. If rash persists after discontinuation of Ceftriaxone, she should notify ID clinic. She may continue Zyrtec until the rash is resolved. Severe malnutrition 07/09/2019 07/09/20 19 A-fib 07/07/2019 11/14/2023 Assessment & Plan (07/10/2019 10:18 AM CDT): PAF- currently NSR Decrease Amio to 200 daily Continue to monitor telemetry Daily EKG-QtC Assessment & Plan (07/07/2019 1:10 PM CDT): Pt with h/o a-fib pre-op. Pt into a-fib 90-110s this am. -amio bolus x1 -amio gtt @ 1mg/min -bmp 1300 -keep K > or equal 4.5 Acute blood loss anemia 07/07/201906/24 Assessment & Plan (07/07/2019 1:23 PM CDT): Hgb down trended yesterday but hemodynamically stable. Today BP a little soft with SBP 90-100s. -1u RBC now -CBC post transfusion Severe protein-calorie malnutrition 07/06/2019 11/14/2023 Assessment & Plan (07/09/2019 9:42 AM CDT): ASPEN/AND Malnutrition Screening: Acute illness or injury severe Patient Meets Criteria for Severe Malnutrition: Yes Present on admission due to prolong illness and immobility ASPEN Malnutrition Assessment: Acute Illness/Injury Severe Energy Intake: < or equal to 50% energy intake compared to estimated energy needs > (or equal to) 5 days Weight Loss: > 5% in 1 month(11%) Patient Meets Criteria for Severe Malnutrition: Ye
--- OUTSIDE RECORDS SUMMARY | 2025-02-04 00:31 | XMS_ITS | Encounter Summary ---
Author Organization [facility] Address [address] [place] [address] Phone Care Team Providers Care Miner Pick Name Role Phone Gilbert Aguirre MD Primary Care Provider [phone] Gilbert Aguirre MD Unavailable [phone] Helen Sharp RN Unavailable Unavailab Chris Munguia MD Unavailable [phone] Encounter Details Date Type Department Care Team (Late st Contact Info) Description 07/29/2019 Telephone [facility] Cardiology [address] [facility] Advanced Medicine 8th [place] [address] [place] [address] Chris Priest MD [address] [facility] [address] [place] [address] Social History Tobacco Use Types Packs/Day Years Used Date Smoking Tobacco: Never Smokeless Tobacco: Never Alcohol Use Standard Drinks/Week Comments No 0 (1 standard drink = 0.6 oz pur e alcohol) PHQ-2 Answer Date Recorded PHQ-2 Score 0 05/15/2019 Comments No Sex and Gender Information Value Date Recorded Sex Assigned at Not on file 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 Author BH-Pain Behavioral Health Yes Jolly Broderick, RN Note: Pt would like to be more active without a lot of pain. documented as of this encounter Visit Diagnoses Not on filedocumented in this encounter Additional Health Concerns Infection Onset Date Last Indicated Resolved Time COVID: Suspected 03/29/2021 03/29/2021 03/29/2021 4:27 AM CDT documented as of this encounter Care Teams Miner Pick Relationship Specialty Start Date End Date Gilbert Aguirre MD PCP - General 07/14/19 Gilbert Aguirre MD Internal Medicine 07/14/19 Helen Sharp, EBER Registered Nurse Pain Management 10/08/17 Chris Priest MD Retail Sales Specialist Cardiology 07/09/19 documented as of this encounter
--- OUTSIDE RECORDS SUMMARY | 2025-02-04 00:31 | XMS_ITS | Encounter Summary ---
Author Organization [facility] Address [address] [facility] [address] [place] [address] Phone Care Team Providers Care Miniature Model Maker Name Role Phone Gilbert Aguirre MD Primary Care Provider [phone] Gilbert Aguirre MD Primary Care Provider [phone] Gilbert Aguirre MD Primary Care Provider [phone] Gilbert Aguirre MD Unavailable [phone] Helen Sharp RN Unavailable Unavailab Chris Munguia MD Unavailable [phone] Encounter Details Date Type Department Care Team (Late st Contact Info) Description 07/05/2019 Ophth Exam [facility] Ophthalmology [address] [place] [address] [place] [id number] Henrique Cordero MD [address] [facility] [place] [address] Social History Tobacco Use Types Packs/Day Years Used Date Smoking Tobacco: Never Smokeless Tobacco: Never Alcohol Use Standard Drinks/Week Comments No 0 (1 standard drink = 0.6 oz pur e alcohol) PHQ-2 Answer Date Recorded PHQ-2 Score 0 05/15/2019 Comments No Sex and Gender Information Value Date Recorded Sex Assigned at Not on file 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 Mild mental slowing. Neuro/Psych Oriented x3: Yes Mood/Affect: Flat affect. Mi ldly slowed mentation. Dilation Both eyes: 1% Tropicamide, 2 .5% Phenylephrine @ 4:43 PM External Exam Right eye Left eye External Normal Normal Slit Lamp Exam Right eye Left eye Lids/Lashes Normal Normal Conjunctiva/Sclera White and quiet. No palpebral or subconj heme White and quiet. No palpebral heme or subconj Cornea Clear Clear Anterior Chamber Deep and clear Deep and clear Iris Round and reactive Round and fam ctive Lens NS NS Vitreous Normal Normal Fundus Exam Right eye Left eye Disc Normal, sharp margins Normal, sh haja margins C/D Ratio 0.35 0.35 Macula Normal two parafoveal w george spots, ?CWS vs resolved Caro spots superonasal macula Vessels mild tortuosity mild tortuosity Periphery inferotemporal white area, likely CWS, no overlying vitritis Normal Care Teams Miniature Model Maker Relationship Specialty Start Date End Date Gilbert Aguirre MD PCP - General 02/01/17 07/08/19 Gilbert Aguirre MD PCP - General Internal Medicine 07/09/19 07/13/19 Gilbert Aguirre MD PCP - General 07/14/19 Gilbert Aguirre MD Internal Medicine 07/14/19 Helen Sharp, EBER Registered Nurse Pain Management 10/08/17 Chris Priest MD Hide Mill Worker Cardiology 07/09/19 documented as of this encounter
--- OUTSIDE RECORDS SUMMARY | 2025-02-04 00:31 | XMS_ITS | Encounter Summary ---
Author Organization [facility] Address [address] [place] [address] Care Team Providers Care Library Technology Instructor Name Role Phone Gilbert Aguirre MD Primary Care Provider [phone] Gilbert Aguirre MD Primary Care Provider [phone] Gilbert Aguirre MD Primary Care Provider [phone] Gilbert Aguirre MD Unavailable [phone] Helen Sharp RN Unavailable Unavailab Chris Munguia MD Unavailable [phone] Encounter Details Date Type Department Care Team (Late st Contact Info) Description 07/04/2019 Documentation Case Management [address] [place] [address] Elinor Tenorio RN Social History Tobacco Use Types Packs/Day Years Used Date Smoking Tobacco: Never Smokeless Tobacco: Never Alcohol Use Standard Drinks/Week Comments No 0 (1 standard drink = 0.6 oz pur e alcohol) PHQ-2 Answer Date Recorded PHQ-2 Score 0 05/15/2019 Comments No Sex and Gender Information Value Date Recorded Sex Assigned at Not on file 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
[2025-02-04 11:45] VITALS: BP 149/91; PULSE 82; RESP 16; TEMP 36.4; O2SAT 95
[2025-02-04] MEDS: LACTATED RINGERS 1,000 ML 150 ML IV CONT (11:56)
--- NOTE | 2025-02-04 12:24 | P.PNAN_ITS ---
Anes - Initial Pre Proc Eval Procedure: Operation Date: 02/04/25 13:00 Proposed Procedures p Esophagogastroduodenoscopy - Jordan Horn MD Date/Time: 02/04/25 12:24 Surgeon: Jordan Horn MD Pre Op Diagnosis: Diaphragmatic hernia without obstruction or gangre Patient Data Age: 69 Gender: F Height: 1.63 m Weight: 90.5 kg Last Vital Signs Temp 36.4 C 02/04/25 11:45 Pulse 82 02/04/25 11:45 Resp 16 02/04/25 11:45 BP 149/91 H 02/04/25 11:45 Pulse Ox 95 02/04/25 11:45 O2 Del Method Room Air 02/04/25 11:45 Allergies Allergy/AdvReac Type Severity Reaction Status Date / Time amlodipine Allergy Intermediate Swelling Verified 02/04/25 11:44 Home Medications Medication Instructions Recorded Confirmed Type calcium phosphate,dibasic 77 1 tablet PO DAILY 10/10/19 02/04/25 History mg-vitamin D3 400 unit tablet cetirizine 10 mg capsule (Zyrtec) 10 mg PO DAILY 10/10/19 02/04/25 History multivitamin 1 tablet PO DAILY 10/10/19 02/04/25 History aspirin 81 mg tablet,delayed 81 mg PO DAILY 10/21/19 02/04/25 History release (Adult Low Dose Aspirin) fluticasone propionate 50 2 spray intranasal DAILY 10/21/19 02/04/25 History mcg/actuation nasal spray,suspension meloxicam 15 mg tablet 15 mg PO DAILY 10/21/19 02/04/25 History montelukast 10 mg tablet 10 mg PO DAILY 03/09/21 02/04/25 History cefdinir 300 mg capsule 300 mg PO Q12H 06/14/23 02/04/25 History esomeprazole magnesium 40 mg 40 mg PO DAILY 06/14/23 02/04/25 History capsule,delayed release rosuvastatin 20 mg tablet 20 mg PO DAILY 06/14/23 02/04/25 History azelastine 137 mcg (0.1 %) nasal 2 spray intranasal BID 08/27/23 02/04/25 History spray losartan 100 mg tablet 50 mg PO BID 06/23/24 02/04/25 History valacyclovir 1 gram tablet 1,000 mg PO Q12H recurrent 06/23/24 02/04/25 Rx aphthous ulcer #20 tabs acetaminophen 500 mg tablet 500 mg PO Q6H PRN pain 11/11/24 01/30/25 History econazole nitrate 1 % topical cream 1 applic topical DAILY PRN rash 11/11/24 01/30/25 History Patient hx anesthesia problems: none Family hx anesthesia problems: none Results Review: All pre-operative results and documents have been reviewed as part of the pre- operative evaluation. [facility] Past Medical History Medical History Endocarditis Epigastric pain GERD (gastroesophageal reflux disease) Low back pain Irritable bowel syndrome with constipation Hiatal hernia Aortic regurgitation Aortic valve leakage. Instead of tricuspid valve she has a bicuspid which cause blood to leak back into the heart. Surgical History Surgical History History of elbow surgery 08/2018 History of shoulder surgery 04/2018 History of open heart surgery 2 valves 07/12/19 History of gynecologic surgery 1982-Micro surgery on fallopian tubes. History of section 1983,1984 History of tubal ligation [id number] History of sinus surgery [id number] Family History Family History Mother Family history of chronic obstructive pulmonary disease Grandparent Carcinoma of colon Father Family history of diabetes mellitus in first degree relative Family history of malignant neoplasm of brain Family history of heart disease in male family member before age 55 Sibling Family history of diabetes mellitus in first degree relative Family history of lung cancer Cerebrovascular accident Social History Social History Social History: Caffeine-coffee Smoking status: Never smoker Alcohol intake: never Substance use: never Substance use type: does not use Current Housing: Decline to Answer Concerned About Future Housing: Decline to Answer Difficulty Paying Gas/Electric Bills: Decline to Answer Difficulty Paying for Meds: Decline to Answer Currently Unemployed: Decline to Answer Education: Decline to Answer Difficulty w/ Childcare or Family Care: Decline to Answer Living arrangements: with family Additional living arrangements comments: , daughter and grandkids 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ucation: occupation Additional occupation/education comments: [employer] Gender identity (if verbalized by the patient): Female Spiritual care concerns: No Agree to blood products: Yes Anes - Eval Final PreProcedure Day of Procedure 02/04/25 12:24 Patient weight: obese Heart: regular rate and rhythm Lungs: clear to auscultation Airway: Mallampati scale class II Neurological: alert and oriented Last oral intake: >/= 8 hours ASA classification: III Emergent: no Anesthetic plan: proceed Anesthesia type and monitoring: general GIVS and standard monitoring Results Review: All pre-operative results and documents have been reviewed as part of the pre- operative evaluation. Informed Consent: The patient's anesthetic plan and its attendant risks and benefits were discussed with the patient/family/POA. Questions were solicited and answers provided to the satisfaction of the patient/family/POA.
--- NOTE | 2025-02-04 12:36 | P.HP_ITS ---
H&P: HPI History of Present Illness Date/Time: 02/04/25 12:36 Chief Complaint: Epigastric pain Narrative: the patient suffers from chronic heartburn for years, currently controlled with his omeprazole which she takes once a day. over the past few months she has been experiencing epigastric pain episode, frequently radiating to the upper chest and both upper quadrants. She has been told has hiatal hernia on EGD more than 20 years ago. There is also intermittent dysphagia to solid foods. She is referred for EGD. Review of Systems Review of Systems: All systems reviewed & are unremarkable except as noted in HPI and below PMFSH Past Medical History Medical History Endocarditis Epigastric pain GERD (gastroesophageal reflux disease) Low back pain Irritable bowel syndrome with constipation Hiatal hernia Aortic regurgitation Aortic valve leakage. Instead of tricuspid valve she has a bicuspid which cause blood to leak back into the heart. Surgical History Surgical History History of elbow surgery 08/2018 History of shoulder surgery 04/2018 History of open heart surgery 2 valves 07/12/19 History of gynecologic surgery 1982-Micro surgery on fallopian tubes. History of section 1983,1984 History of tubal ligation [id number] History of sinus surgery [id number] Family History Family History Mother Family history of chronic obstructive pulmonary disease Grandparent Carcinoma of colon Father Family history of diabetes mellitus in first degree relative Family history of malignant neoplasm of brain Family history of heart disease in male family member before age 55 Sibling Family history of diabetes mellitus in first degree relative Family history of lung cancer Cerebrovascular accident Social History Social History Social History: Caffeine-coffee Smoking status: Never smoker Alcohol intake: never Substance use: never Substance use type: does not use Current Housing: Decline to Answer Concerned About Future Housing: Decline to Answer Difficulty Paying Gas/Electric Bills: Decline to Answer Difficulty Paying for Meds: Decline to Answer Currently Unemployed: Decline to Answer Education: Decline to Answer Difficulty w/ Childcare or Family Care: Decline to Answer Living arrangements: with family Additional living arrangements comments: , daughter and grandkids 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ucation: occupation Additional occupation/education comments: [employer] Gender identity (if verbalized by the patient): Female Spiritual care concerns: No Agree to blood products: Yes Meds Home Medications and Allergies Home Medications Medication Instructions Recorded Confirmed Type calcium phosphate,dibasic 77 1 tablet PO DAILY 10/10/19 02/04/25 History mg-vitamin D3 400 unit tablet cetirizine 10 mg capsule (Zyrtec) 10 mg PO DAILY 10/10/19 02/04/25 History multivitamin 1 tablet PO DAILY 10/10/19 02/04/25 History aspirin 81 mg tablet,delayed 81 mg PO DAILY 10/21/19 02/04/25 History release (Adult Low Dose Aspirin) fluticasone propionate 50 2 spray intranasal DAILY 10/21/19 02/04/25 History mcg/actuation nasal spray,suspension meloxicam 15 mg tablet 15 mg PO DAILY 10/21/19 02/04/25 History montelukast 10 mg tablet 10 mg PO DAILY 03/09/21 02/04/25 History cefdinir 300 mg capsule 300 mg PO Q12H 06/14/23 02/04/25 History esomeprazole magnesium 40 mg 40 mg PO DAILY 06/14/23 02/04/25 History capsule,delayed release rosuvastatin 20 mg tablet 20 mg PO DAILY 06/14/23 02/04/25 History azelastine 137 mcg (0.1 %) nasal 2 spray intranasal BID 08/27/23 02/04/25 History spray losartan 100 mg tablet 50 mg PO BID 06/23/24 02/04/25 History valacyclovir 1 gram tablet 1,000 mg PO Q12H recurrent 06/23/24 02/04/25 Rx aphthous ulcer #20 tabs acetaminophen 500 mg tablet 500 mg PO Q6H PRN pain 11/11/24 01/30/25 History econazole nitrate 1 % topical cream 1 applic topical DAILY PRN rash 11/11/24 01/30/25 History Allergies Allergy/AdvReac Type Severity Reaction Status Date / Time amlodipine Allergy Intermediate Swelling Verified 02/04/25 11:44 Vital Signs Vital Signs - 24 hr 02/04/25 11:45 Temperature 97.6 F Pulse Rate 82 Respiratory Rate 16 Blood Pressure 149/91 H Pulse Oximetry 95 Oxygen Delivery Room Air Exam Const: General: cooperative and healthy appearing Resp: Effort & Inspection: normal respiratory effort and able to speak in complete sentences Auscultation: clear to auscultation bilaterally Cardio: Rate: regular rate Rhythm: regular rhythm GI: Inspection: normal to inspection GI Palp: No No hepatosplenomegaly present Auscultation: normal bowel sounds Rectal Exam: deferred Skin: General skin exam: normal color Psych: Appearance: grossly normal Mental Status: mental status grossly normal Assessment and Plan Assessment and plan (1) Epigastric pain: Code(s): R10.13 - Epigastric pain Status: Acute Assessment and Plan: The patient is deemed a good candidate for the procedure. Consent signed. Will proceed.
[2025-02-04] MEDS: BENZOCAINE (*SP) 60 ML SPRAY CAN (HURRICAINE) 1 SPRAY MUCOUS MEM (12:44)
[2025-02-04 12:58] VITALS: BP 125/69; PULSE 68; RESP 21; O2SAT 95
[2025-02-04 13:05] VITALS: BP 99/65; PULSE 71; RESP 17; O2SAT 93
[2025-02-04 13:15] VITALS: BP 114/57; PULSE 68; RESP 18; O2SAT 95
[2025-02-04 13:20] VITALS: BP 107/69; PULSE 65; RESP 18; O2SAT 95
== END 2025-02-04 13:28 | disposition home or self-care (01) ==
PROVIDERS: PCP Internal Medicine; Visit Provider Internal Medicine Gastroenterology
PROC: 0DJ08ZZ Inspection of Upper Intestinal Tract, Via Natural or Artificial Opening Endoscopic (ICD-10-PCS; CPT 43239; principal; 2025-02-04 13:00)
DX: K29.30 Chronic superficial gastritis without bleeding (principal); E66.9 Obesity, unspecified; Z68.34 Body mass index [BMI] 34.0-34.9, adult
CPT/HCPCS: 43239; 88305; J2003; J2704; J7120

== ENCOUNTER 2025-04-01 11:46 | Outpatient (CLI) | payer MEDICARE, SELFPAY ==
--- NOTE | ~2025-04-01 | XR_ITS ---
EXAMINATION: XR UGIAC w barium swallow DATE: 04/01/2025 12:35 INDICATION: Diaphragmatic hernia without obstruction or gangrene TECHNIQUE: The patient drank thick barium, gas-producing crystals, and thin barium. Fluoroscopic spot radiographs of the hypopharynx, esophagus, stomach and proximal small bowel were obtained. Fluorosco py exposure time was 2.3 minutes. Total DAP was 18.899 Gycm^2. COMPARISON: CT dated 08/01/2023 FINDINGS: The pharynx is symmetric and without evidence of mass lesion or mucosal irregularity. The esophagus i s normal without mass or stricture. Esophageal motility is normal. There is no hiatal hernia. There w as no gastroesophageal reflux with provocative maneuvers. The stomach and proximal small bowel are no rmal. Incidentally noted are postoperative change of prior median sternotomy and aortic and mitral va lve repairs. IMPRESSION: 1. Normal esophagram and upper GI study. Reviewed, dictated and finalized at location A.
--- OUTSIDE RECORDS SUMMARY | 2025-04-01 11:50 | XMS_ITS | Encounter Summary ---
Author Organization [facility] Healthcare Address [address] [place] [address] Care Team Providers Care Inspector Plating Name Role Phone Gilbert Aguirre MD Primary Care Provider [phone]- [phone] Gilbert Aguirre MD Primary Care Provider [phone] Gilbert Aguirre MD Primary Care Provider [phone]- [phone] Gilbert Aguirre MD Unavailable [phone] Helen Sharp RN Unavailable Unavailab Chris Munguia MD Unavailable [phone] Encounter Details Date Type Department Care Team (Late st Contact Info) Description 07/04/2019 Documentation [facility] Case Management [address] [place] [id number] Elinor Tenorio RN Social History Tobacco Use Types Packs/Day Years Used Date Smoking Tobacco: Never Smokeless Tobacco: Never Alcohol Use Standard Drinks/Week Comments No 0 (1 standard drink = 0.6 oz pur e alcohol) PHQ-2 Answer Date Recorded PHQ-2 Score 0 05/15/2019 Comments No Sex and Gender Information Value Date Recorded Sex Assigned at Not on file Legal Sex Female 1:50 AM [employer]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
--- OUTSIDE RECORDS SUMMARY | 2025-04-01 11:50 | XMS_ITS | Referral Summary ---
Author Organization [facility] Address [address] [place] [address] Care Team Providers Care Appraiser [employer] Name Role Phone Gilbert Aguirre MD Primary Care Provider [phone] Gilbert Aguirre MD Unavailable [phone] Helen Sharp RN Unavailable Unavailab Lena Priest MD Unavailable [phone] Encounters Date Type Department Care Team Description 01/15/2025 Telephone [facility] [address] [place] [address] 8th [place] [address] [place] [address] Lnea Priest MD 01/13/2025 Telephone [facility] [address] [place] [address] 8th [place] [address] [place] [address] Lena Priest MD Echo review 01/08/2025 Telephone [facility] [address] [place] [address] 8th [place] [address] [place] [address] Lena Priest MD 01/08/2025 Results Follow-Up [facility] [address] [place] [address] [place] [address] [place] [address] Lena Priest MD Transthoracic Echo (TTE) Complete W Doppler/CF 01/08/2025 6:34 AM CDT - 01/08/2025 11:59 PM CDT Hospital Encounter [facility] [address] [facility] [address] [place] [address] H/O aortic valve replacement; Aneurysm of ascending aorta without rupture; Chest pain on breathing Discharge Disposition: Discharge to home or self care 01/06/2025 1:54 PM CDT - 01/06/2025 11:59 PM CDT Hospital Encounter [facility] [address] [place] [address] Lena Priest MD Chest pain on breathing Discharge Disposition: Discharge to home or self care 01/06/2025 Results Follow-Up [facility] [address] [place] [address] Medicine 8th [place] [address] [place] [address] Lena Priest MD ECG 12 lead 01/06/2025 11:50 AM CDT Lab [facility] ([facility]) [address] [place] [id number] Shortness of breath; High risk medications (not anticoagulants) long-term use 01/06/2025 12:30 PM CDT Office Visit [facility] [address] [place] [address] 8th [place] [address] [place] [address] Lena Priest MD Palpitations (Primary Dx); H/O aortic valve replacement; Essential hypertension; Aneurysm of ascending aorta without rupture; Chest pain on breathing 01/05/2025 Telephone [facility] [address] [place] [address] 8th [place] [address] [place] [address] Lena Priest MD Portal message with symptoms from Last 3 Months Allergies Active Allergy [...] total) by mouth daily before breakfast RX: [id number] Active montelukast (SINGULAIR) 10 mg tablet Take [...] up - Plan to place patient on termite control technician suppressive antibiotic therapy after IV antibiotics are complete given 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 No obvious signs of endocarditis on TTE/ANYA or PET scan but given recurrence of infection with same organisms in the presence of bioprosthetic heart valves it is likely these are seeded. Benefits of correction suppression significantly outweigh the risks. Unfortunately, the Strep isolate is now intermediate to penicillins. Will likely need a termite control technician flouroquinolone such as levofloxacin. 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 She underwent bioprosthetic aortic and mitral valve replacement last year for this complication. With recurrent streptococcal bacteremia, there is concerned about recurrent endocarditis involving the bioprosthetic valves. Transthoracic echocardiogram did not demonstrate any vegetation. Plans are for transesophageal echocardiogram today. Her WA interval is okay on telemetry. She has no features of heart failure. She has no significant valve dysfunction on echocardiogram yesterday. She is hemodynamically stable without any ongoing fevers at present. She is on antibiotics at the direction of the Infectious Disease Service. Await the results of the ANYA. H/O aortic valve replacement 09/12/2019 Assessment & Plan (10/16/2019 1:27 PM STABLE MANAGER): Patient meets criteria for pneumococcal vaccination given history of valvular disease and replacement. Vaccination given in clinic today. 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 Priest) if she continues to have [...] concerns Assessment & Plan (08/12/2020 7:22 PM STABLE MANAGER): - Doing well on interview today with [...] without suppressive antibiotics. Risks and benefits of correction antibiotic suppression discussed, side effects of flouroquinolones [...] concerns Assessment & Plan (10/16/2019 1:26 PM STABLE MANAGER): Completed 7 weeks IV ceftriaxone from (06/26/2019 [...] swelling. Assessment & Plan (08/14/2019 1:52 PM STABLE MANAGER): S. 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 - Ceftriaxone IV q 12 hours (CAR DUMPER OPERATOR HELPER dosing) X6 weeks 2 osteo of spine [...] mitis. - Ceftriaxone IV q 12 hours (CAR DUMPER OPERATOR HELPER dosing) X6 weeks 22 osteo of spine [...] 06/26. - Ceftriaxone IV q 12 hours (CAR DUMPER OPERATOR HELPER dosing) X6 weeks 10/26 osteo of spine - consult ophthalmology to [...] 06/26. - Ceftriaxone IV q 12 hours (CAR DUMPER OPERATOR HELPER dosing) X6 weeks 2/2 osteo of spine - consult ophthalmology on 07/05 to evaluate for concern of floaters that began within the last 48 hours - NSGY following for brain abscess with rupture c/b meningitis - f/u cultures sent from OR - appreciate any additional ID reqs Assessment & Plan (07/04/2019 5:20 PM CDT): - Ceftriaxone IV q 12 hours (CAR DUMPER OPERATOR HELPER dosing) X6 weeks 2/2 osteo of spine - needs ophthalmology consult regarding floaters that began within the last 48 hours -f/u cultures sent from OR -appreciate any additional ID reqs Assessment & Plan (07/03/2019 4:22 PM CDT): 10/ BCx +strep mitis, 10/ BCx NGTD. TTE: MV & AV vegetations. C/b L4-L5 discitis and brain septic emboli & meningitis. Bone bx 10/ NGTD. Panorex neg. Carotid Dopplers negative. ANYA [...] following - Cont CTX 2g 12h for CAR DUMPER OPERATOR HELPER dosing Assessment & Plan (07/03/2019 8:11 AM [...] 10 NGTD. Panorex neg. Carotid Dopplers negative. ANYA [...] following - Cont CTX 2g 12h for CAR DUMPER OPERATOR HELPER dosing Assessment & Plan (07/01/2019 2:10 PM [...] following - Cont CTX 2g 12h for CAR DUMPER OPERATOR HELPER dosing Assessment & Plan (06/30/2019 6:04 PM [...] following - Cont CTX 2g 12h for CAR DUMPER OPERATOR HELPER dosing Assessment & Plan (06/29/2019 10:20 AM CDT): 06/25 BCx +strep mitis, 06/26 BCx NGTD. TTE: MV & AV vegetations. C/b L4-L5 discitis and brain septic emboli & meningitis. Bone bx 06/26 NGTD. Panorex neg. - Cardiac surgery consulted: CT TAVR & bMRI performed, carotid dopplers pending - ANYA Mon - ID following - Cont CTX 2g 12h for CAR DUMPER OPERATOR HELPER dosing Assessment & Plan (06/28/2019 10:41 AM [...] AM CDT): Unclear source, c/f possible endocarditis. 10/2 BCx +strep. - Abx, BCx as above [...] and beta cony PICC placed for IVAB- correction Assessment & Plan (07/07/2019 10:20 AM CDT): [...] (06/30/2019): Added automatically from request for surgery [id number] Assessment & Plan (07/08/2019 11:34 AM CDT): [...] 02/09/2021 Assessment & Plan (10/16/2019 1:29 PM STABLE MANAGER): Patient reports recent onset rhinorrhea and sneezing. She is afebrile. She has already had flu shot. Advise rest, hydration, and symptomatic management. Pruritic erythematous rash 08/14/2019 0 02/09/2021 Assessment & Plan (08/14/2019 1:57 PM STABLE MANAGER): Possible drug allergy, but appearance of rash [...] VVI backup - Hgb goal > 8 Assessment & Plan (07/04/2019 6:04 PM CDT): S/p Bio AVR/MVR. Preop EF: 50-60. Today, post CPB ANYA on 0.5mcg/kg/min with reported normal BiV function and no PVL. ST 100s with A/V EPW set VVI back up. CI upon arrival to ICU 3.3 -hold epi wean pending plan to extubate this evening -500ml total albumin bolus for lactic acidosis -VVI backup -Hgb goal > 8 -consider starting epi wean once pt extubated and stable for a few hours Acute pulmonary insufficiency 07/04/2019 07/08/2019 Assessment & Plan (07/07/2019 10:19 AM CDT): Pt remained on RA overnight and this am. -pulmonary hygiene -lasix 20mg daily -FBG -1L -OOBTC and attempt to ambulate with PT today Assessment & Plan (07/06/2019 4:58 PM CDT): O2 weaned to RA this am. CXR with mild pulmonary edema improved. -pulmonary hygiene -lasix 20mg BID -FBG -1L -OOBTC if pt able to tolerate Assessment & Plan (07/05/2019 10:05 PM CDT): Extubated to TN overnight. O2 weaned to off this am. -pulmonary hygiene -lasix 40mg x1 -FBG -1L -f/u with ortho-spine regarding brace for support before getting out of bed -Brace brought to bedside via . Ortho spine recs WBAT with brace as needed. states pt has not been out of bed for ~5-6wks d/t significant backpain, and also states she has difficult sitting in chair. Today attempted sitting in the bed. Pt very painful and becoming tearful. Will attempt lift to chair tomorrow and work with PT. Assessment & Plan (07/05/2019 1:01 AM CDT): Post-procedural short-term ventilatory support with anticipated extubation. Arrives on minimal vent settings. Reversal given at bedside in ICU by OR team. Sedated with propofol. Failed PSV trial earlier 2/2 poor mechanical effort, tachypnea and metabolic acidosis with bicarb given. - repeat ABG now - plan for PSV trial with goal of extubation if abg improved - propofol for RASS 0 Assessment & Plan (07/04/2019 4:42 PM CDT): Post-procedural short-term ventilatory support with anticipated extubation. Arrives on minimal vent settings. Reversal given at bedside in ICU by OR team. Sedated with propofol. MCT X2 placed interop. No PCT as pleural spaces were not entered. -stat post op CXR -propofol for RASS 0 to negative 2 -once CXR, first set of labs stable and CT output stable, start propofol wean for PSV trial 06/28/40% X30 min with intent to extubate Increased anion gap metabolic acidosis 07/04/2019 07/08/2019 Assessment & Plan (07/04/2019 5:05 PM CDT): Likely 2/2 elevated lactate. -250ml albumin now -1amp bicarb per surgeon preference now -trend lactate Q6hrs until </=2 -consider PRBC if hgb < 8 Transaminitis 07/04/2019 07/08/2019 Assessment & Plan (07/05/2019 12:59 AM CDT): Reported preop transaminitis. CT TAVR 06/27: No focal hepatic lesions. No biliary ductal dilatation. Tbili up to 2.7. Peak on 06/27: AP363, ALT 152, AST 75 - CMP with AML - hold statin post op with transaminitis - 1x dose of apap now for fever (Temp up to 38.7 with tachypnea and tachycardia) to aid in extubation efforts - consider RUQ US vs CT scan if up trending on AML to r/o septic emboli as source of elevated enzymes; however 06/27 imaging did not mention hepatic or biliary lesions Assessment & Plan (07/04/2019 6:11 PM CDT): Reported preop transaminitis. CT TAVR 06/27: No focal hepatic lesions. No biliary ductal dilatation. Tbili continuing to rise on post op labs. Peak on 06/27: AP363, ALT 152, AST 75 -check LFT now and with AML -likely hold statin post op with transaminitis -consider RUQ US vs CT scan if up trending on AML to r/o septic emboli as source of elevated enzymes; however 06/27 imaging did not mention hepatic or biliary lesions Brain abscess 06/29/2019 02/09/2021 Overview (07/04/2019): 06/27 brain MRI reat: Well-defined rim-enhancing diffusion restricting right splenial lesion. Additional foci of parenchymal enhancement without discrete lesion are scattered within the cerebral and cerebellar hemispheres some of which have associated focus of susceptibility. Leptomeningeal and ependymal enhancement. Consolation of findings favor meningitis, septic emboli with development of abscess. Leptomeningeal carcinomatosis cannot be excluded and clinical correlation for primary malignancy is recommended Assessment & Plan (07/07/2019 10:26 AM CDT): Alert and oriented this am. -d/c neuro checks Neurosurgery team and Dr Mart has evaluated the pt for cerebral microabscesses. It is being managed non-operatively with observation. The patient should be seen in Neurosurgery clinic in 4-6 weeks with an MRI of the brain, brain tumor protocol. Appt 08/07/19 at 11:30 at [facility] 6b Discharge instructions must include: Neurosx clinical appointment date and phone number Appointment Scheduling: Doctor s Office: Dr. Dmitri Mart, After hours emergency: or Assessment & Plan (07/06/2019 10:45 AM CDT): Once extubated pt lethargic. At times noted to have garbled speech. CAM[facility] pos. Slight weakness noted in right formula bottler compared to left. HCT performed yesterday negative for acute intracranial process. -Neuro checks Q4hr Neurosurgery team and Dr Mart has evaluated the pt for cerebral microabscesses. It is being managed non-operatively with observation. The patient should be seen in Neurosurgery clinic in 4-6 weeks with an MRI of the brain, brain tumor protocol. Appt 08/07/19 at 11:[address] Discharge instructions must include: Neurosx clinical appointment date and phone number Appointment Scheduling: Doctor s Office: Dr. Dmitri Mart, After hours emergency: or Assessment & Plan (07/05/2019 10:08 PM CDT): Once extubated pt lethargic. At times noted to have garbled speech. CAMICU pos. Slight weakness noted in right formula bottler compared to left. -HCT noncontrast -Neuro checks Q4hr HCT negative -discussed keppra need/dosing with neurosurgery, eliana discontinued Neurosurgery team and Dr Mart has evaluated the pt for cerebral microabscesses. It is being managed non-operatively with observation. The patient should be seen in Neurosurgery clinic in 4-6 weeks with an MRI of the brain, brain tumor protocol. Appt 08/07/19 at 11:[address] Discharge instructions must include: Neurosx clinical appointment date and phone number Appointment Scheduling: Doctor s Office: Dr. Dmitri Mart, After hours emergency: or Assessment & Plan (07/04/2019 5:25 PM CDT): Currently sedated and intubated -Neuro checks Q1hr X24hrs -keppra 500mg BID Neurosurgery team and Dr Mart has evaluated the pt for cerebral microabscesses. It is being managed non-operatively with observation. The patient should be seen in Neurosurgery clinic in 4-6 weeks with an MRI of the brain, brain tumor protocol. Appt 08/07/19 at 11:30 at [facility] 6b Discharge instructions must include: Neurosx clinical appointment date and phone number Appointment Scheduling: Doctor s Office: Dr. Dmitri Mart, After hours emergency: or Assessment & Plan (07/03/2019 4:23 PM CDT): bMRI with 5x5mm R splenium corpus callosum + multiple other punctate areas c/f septic emboli, as well as leptomeningeal enhancement c/w meningitis. A&Ox4, no neuro deficits, does endorse some neck pain. - NSGY consulted, no surgical interventions needed at this time. Plan for outpatient f/u in 4 weeks with repeat bMRI - Keppra 500 BID for sz ppx, q4h neuro checks Assessment & Plan (07/02/2019 2:01 PM CDT): bMRI with 5x5mm R splenium corpus callosum + multiple other punctate areas c/f septic emboli, as well as leptomeningeal enhancement c/w meningitis. A&Ox4, no neuro deficits, does endorse some neck pain. - NSGY consulted, no surgical interventions needed at this time. Plan for outpatient f/u in 4 weeks with repeat bMRI - Keppra 500 BID for sz ppx, q4h neuro checks Assessment & Plan (07/01/2019 2:12 PM CDT): bMRI with 5x5mm R splenium corpus callosum + multiple other punctate areas c/f septic emboli, as well as leptomeningeal enhancement c/w meningitis. A&Ox4, no neuro deficits, does endorse some neck pain. - NSGY consulted, no surgical interventions needed at this time. Plan for outpatient f/u in 4 weeks with repeat bMRI - Keppra 500 BID for sz ppx, q4h neuro checks Assessment & Plan (06/30/2019 3:02 PM CDT): bMRI with 5x5mm R splenium corpus callosum + multiple other punctate areas c/f septic emboli, as well as leptomeningeal enhancement c/w meningitis. A&Ox4, no neuro deficits, does endorse some neck pain. - NSGY consulted, no surgical interventions needed at this time. Plan for outpatient f/u in 4 weeks with repeat bMRI - Keppra 500 BID for sz ppx, q4h neuro checks Assessment & Plan (06/29/2019 10:30 AM CDT): bMRI with 5x5mm R splenium corpus callosum + multiple other punctate areas c/f septic emboli, as well as leptomeningeal enhancement c/w meningitis. A&Ox4, no neuro deficits, does endorse some neck pain. - NSGY consulted, no surgical interventions needed at this time - Keppra 500 BID for sz ppx, q4h neuro checks Vertebral osteomyelitis 06/27/2019/09/2023 Assessment & Plan (10/16/2019 1:26 PM STABLE MANAGER): As above. 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 Assessment & Plan (07/10/2019 10:22 AM CDT): Osteo lower back Back brace for comfort when OOB Continue IVAB- PICC line placed ID following. PT/OT Assessment & Plan (07/05/2019 10:11 PM CDT): S/p hx of Degenerative Disk disease: L5-S1. L4-5 osteodiscitis. Spondylosis lumbar region. Preop pt was on ultram 50mg BID. Ortho spine following with the following recommendations: -PT/OT -WBAT, no specific spine precautions -Cont abx per ID Assessment & Plan (07/04/2019 4:39 PM CDT): S/p hx of Degenerative Disk disease: L5-S1. L4-5 osteodiscitis. Spondylosis lumbar region. Preop pt was on ultram 50mg BID. Ortho spine following with the following recommendations: -they have contacted [facility] for LSO -PT/OT -WBAT, no specific spine precautions -Cont abx per ID Assessment & Plan (07/03/2019 4:23 PM CDT): L4/L5 discitis/osteomyelitis on CT & MRI. 10/3 bone biopsy, cx NGTD. Source is endocarditis as above. - Management of endocarditis as above - ID following - F/u ortho spine recs, L-spine precautions (LSO and c-collar when patient is up) Assessment & Plan (07/02/2019 2:01 PM CDT): L4/L5 discitis/osteomyelitis on CT & MRI. 10/3 bone biopsy, cx NGTD. Source is endocarditis as above. - Management of endocarditis as above - ID following - F/u ortho spine recs, L-spine precautions (LSO and c-collar when patient is up) Assessment & Plan (07/01/2019 2:12 PM CDT): L4/L5 discitis/osteomyelitis on CT & MRI. 10/3 bone biopsy, cx NGTD. Source is endocarditis as above. - Management of endocarditis as above - ID following - F/u ortho spine recs, L-spine precautions (LSO and c-collar when patient is up) Assessment & Plan (06/30/2019 2:59 PM CDT): L4/L5 discitis/osteomyelitis on CT & MRI. 06/26 bone biopsy, cx NGTD. Source is endocarditis as above. - Management of endocarditis as above - ID following - F/u ortho spine recs, L-spine precautions (LSO and c-collar when up) Assessment & Plan (06/29/2019 10:33 AM CDT): L4/L5 discitis/osteomyelitis on CT & MRI. 06/26 bone biopsy, cx NGTD. Source is endocarditis as above. - Management of endocarditis as above - F/u ortho spine recs, L-spine precautions Assessment & Plan (06/28/2019 10:42 AM CDT): L4/L5 discitis/osteomyelitis on CT & MRI. 06/26 bone biopsy, cx NGTD. Source is endocarditis as above. - Management of endocarditis as above - F/u ortho spine recs, L-spine precautions Assessment & Plan (07/09/2019 8:53 AM CDT): Pt with worsening of her chronic back pain started in 05/2019 where she was evaluated in the ED for exacerbation of chronic pain and ultimately found to have concerns for OM of her L spine with MRI prompting admission to [facility]. Seen by ortho with no surgical intervention. Bone biopsy from 06/26 . Recommendations: - Will require at least 6 weeks of IV therapy for osteomyelitis of spine - ESR/CRP to be obtained at weeks 3 & 6 of therapy - See endocarditis Assessment & Plan (06/27/2019 10:23 AM CDT): L4/L5 discitis/osteomyelitis on CT & MRI. 06/25 BCx +streptococcus. Source is likely bacteremia, c/f possible endocarditis. H/o bicuspid AV (inupiat). No hardware or instrumentation. 06/26 bone biopsy, cx NGTD. - Cont vanc/CTX/flagyl for now, f/u BCx & tissue cx. - ID c/s - F/u ortho spine recs. - TTE Immunizations Immunization Administration Dates Next Due Influenza, Quadrivalent, Brianda l Culture-based MDCK, Preservative Free, Antibiotic Free, Intramuscular 06/23/2020 Influenza, Quadrivalent, Spl it, Intramuscular 05/21/2021,05/19/2019 Influenza, Quadrivalent, Spl it, Preservative Free, Intramuscular 05/19/2019,05/24/2018,05/13/2016 Influenza, Trivalent, High D ose, Split, Preservative Free, Intramuscular 05/13/2016 Influenza, Unspecified 05/24/2018,06/13/2017 Pfizer SARS-CoV-2 Monovalent Vaccination (12+ Yrs) PURPLE 05/24/2021,11/25/2020 Pneumococcal Polysaccharide PPV23 10/16/2019 Varicella 05/21/2021 ZOSTER LIVE 02/06/2017 ZOSTER Recombinant 07/30/2021,05/21/2021 Social History Tobacco Use Types Packs/Day Years Used Date Smoking Tobacco: Never Passive Smoke Exposure: Past Smokeless Tobacco: Never Tobacco Cessation:Counseling Given: Not Answered Alcohol Use Standard Drinks/Week Comments No 0 (1 standard drink = 0.6 oz pur e alcohol) PHQ-2 Answer Date Recorded PHQ-2 Score 0 05/15/2019 Comments No Sex and Gender Information Value Date Recorded Sex Assigned at Not on file Legal Sex Female 1:50 AM STABLE MANAGER Gender Identity Not on file Sexual Orientation Not on file Last Filed Vital Signs Vital Sign Reading Time Taken Comments Blood Pressure 119/81 01/06/2025 11:57 AM CDT Pulse 86 01/06/2025 11:57 AM CDT Temperature 36.8 C (98.3 F) 05/22/2024 8:54 AM CDT Respiratory Rate 10 09/22/2021 12:35 PM STABLE MANAGER Oxygen Saturation 95% 01/06/2025 11:57 AM CDT Inhaled Oxygen Concentration - - Weight 91.6 kg (202 lb) 01/06/2025 11:57 AM CDT Height 162.6 cm (5' 4) 01/06/2025 11:57 AM CDT Body Mass Index 34.67 01/06/2025 11:57 AM CDT Plan of Treatment Not on file Goals Goal Patient Goal Type Associated Problems Recent Progress Patient-Stated? Author [facility] Yes Jolly Broderick, RN Note: Pt would like to be more active without a lot of pain. Medical Devices Implanted Type Area Traffic Representative Device Identifier Shelf Expiration Date Model / Serial / Lot [employer] [id number] Debra-Edward s Perimount Magna 29mm Bioprosthesis Ease Heart - [id number] - [id number] Implanted:Qty: 1 on 07/04/2019 by Galileo Boothe MD at [facility] N/A: Heart [employer] 01/27/2023 [id number] / [id number] / [employer] [id number] Debra-Edward s Perimount Magna Ease 23mm Bioprosthesis - [id number] - [id number] Implanted:Qty: 1 on 07/04/2019 by Galileo Boothe MD at [facility] N/A: Heart [employer] 04/02/2023 [id number] / [id number] / Procedures Procedure Name Priority Date/Time Associated Diagnosis Comments TRANSTHORACIC ECHO (TTE) COMPLETE W DOPPLER/CF W CONTRAST Routine 01/08/2025 8:10 AM CDT H/O aortic valve replacement Aneurysm of ascending aorta without rupture Chest pain on breathing CT CHEST PE W CONTRAST Schedule Routine, Read Routine (OP Routine) 01/06/2025 2:50 PM CDT Chest pain on breathing ECG 12-LEAD Routine 01/06/2025 12:06 PM CDT Palpitations EGFR Routine 01/06/2025 11:48 AM CDT Shortness of breath High risk medications (not anticoagulants) long-term use DIFFERENTIAL AUTO Routine 01/06/2025 11: 48 AM CDT Shortness of breath High risk medications (not anticoagulants) long-term use CBC WITH AUTO DIFFERENTIAL Routine 01/06/2025 11:48 AM CDT Shortness of breath High risk medications (not anticoagulants) long-term use PRO B-TYPE NATRIURETIC PEPTIDE Routine 01/06/2025 11:48 AM CDT Shortness of breath High risk medications (not anticoagulants) long-term use BASIC METABOLIC PANEL Routine 01/06/2025 11:48 AM CDT Shortness of breath High risk medications (not anticoagulants) long-term use D-DIMER, QUANTITATIVE Routine 01/06/2025 11:48 AM CDT Shortness of breath High risk medications (not anticoagulants) long-term use from Last 3 Months Results * TRANSTHORACIC ECHO (TTE) COMPLETE W DOPPLER/CF W CONTRAST (01/08/2025 8:10 AM CDT) Anatomical Region Laterality Modality Ultrasound 01/08/2025 7:04 AM CDT Narrative 01/08/2025 10:05 AM CDT [facility] Cardiac [place] [address] Transthoracic Echocardiographic Report ADDENDUM Patient Name: JACKELYN FUENTES L : 1955 (69y ) Gender: F Study Date: 01/08/2025 07:04:21 AM Ht(Inch): 64 Wt(Lb): 201.94 BSA: 2.03 Contract Project Manager: amanda hollis Location: [facility] Order Provider: LENA PRIEST Heart Rate: 72 BMI: 34.66 BP: 119 / 81 Ref Provider: LENA PRIEST PROCEDURES: Echocardiographic Report: Transthoracic complete echo with strain imaging and contrast, 2D, spectral and tissue Doppler, color flow Doppler, M-mode. Contrast: Contrast Enhancement was Employed: After initial imaging due to sub- optimal quality related to co-morbidity defined by patient's body habitus and due to suboptimal image quality with inadequate visualization of at least 2 of 16 LV wall segments in any view after initial imaging. Perflutren contrast was administered using the volume necessary to obtain adequate images. 1.1 ml Optison Administered, (1.9 ml wasted). 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 CONCLUSIONS: 1. Normal left ventricular size based on volume index. Concentric LV hypertrophy. The Ejection Fraction (Givens's) is measured at 64 %. Left ventricular diastolic function is indeterminate due to mitral valve repair or replacement. The average global longitudinal strain is borderline. 2. Right ventricular dilatation. Normal right ventricular systolic function. 3. Mild mitral valve regurgitation. The mean transmitral gradient is: 8 mmHg. at a heart rate of 84 beats per minute. A bioprosthetic valve is present in the mitral position with thickened leaflets. 4. The mean transaortic gradient is 23 mmHg. The aortic valve area by the continuity equation (using VTI) is 1 cm2. Aortic valve dimensionless index is 0.27. A bioprosthetic valve is present in the aortic position with thickened leaflets. 5. Normal pericardium without pericardial effusion. 6. Proximal ascending aorta measures 4.0 cm. 7. IVC is normal in size. ATTESTATION: I have personally reviewed and interpreted this study without fellow or resident. - DISCLAIMER: The study images and the final report will be retained in the patient chart by the Echo Laboratory for the legally required time period. This chart constitutes the legal record of any testing performed. FINDINGS: Left Ventricle: Normal left ventricular size based on volume index. Concentric LV hypertrophy. Normal left ventricular systolic function. The Ejection Fraction (Givens's) is measured at 64 %. Left ventricular diastolic function is indeterminate due to mitral valve repair or replacement. The average global longitudinal strain is borderline. The LV global strain is: -16.6 %. Right Ventricle: Right ventricular dilatation. Normal right ventricular systolic function. Left Atrium: The left atrium is normal in size. Right Atrium: The right atrium is normal in size. Mitral Valve: Mild mitral valve regurgitation. The mean transmitral gradient is: 8 mmHg. at a heart rate of 84 beats per minute. Specific MV Structure Abnormalities: A bioprosthetic valve is present in the mitral position with thickened leaflets. Aortic Valve: Moderate aortic valve stenosis. The mean transaortic gradient is 23 mmHg. The aortic valve area by the continuity equation (using VTI) is 1 cm2. Aortic valve dimensionless index is 0.27. A bioprosthetic valve is present in the aortic position with thickened leaflets. Tricuspid Valve: Normal tricuspid valve structure. No tricuspid regurgitation. No tricuspid valve stenosis. Pulmonic Valve: Normal pulmonic valve structure. No pulmonic regurgitation. No pulmonic valve stenosis present. Pericardium: Normal pericardium without pericardial effusion. Aorta: Proximal ascending aorta measures 4.0 cm. Normal aortic root size when indexed. IVC: IVC is normal in size. PASP: Unable to determine PASP due to inadequate TR jet. MEASUREMENTS: 2D/MM Value Range Doppler Value Range LVIDd 2D 3.95 cm [ 3.80 - 5.20 ] AV Peak German 3.2 m/s [ 1.0 - 1.7 ] LVIDs 2D 2.62 cm [ 2.20 - 3.50 ] AV Peak PG 39.79 mmHg IVSd 2D 1.35 cm [ 0.60 - 0.90 ] AV Mean PG 23 mmHg LVPWd 2D 1.45 cm [ 0.60 - 0.90 ] AV VTI 60.9 cm LV Thickness Ratio 0.9 LVOT Peak German 0.8 m/s [ 0.7 - 1.1 ] LV FS 2D 33.77 % [ 27.00 - 45.00 ] LVOT Peak PG 2.54 mmHg LV Mass 2D 207.18 g LVOT Mean PG 1 mmHg LV Mass Index 2D 102.06 g/m2 LVOT VTI 16.3 cm RWT 0.73 LVOT Diam 2.18 cm EDV Mod BP 101.32 ml [ 46.00 - 106.00 ] MELLO VTI 1.00 cm2 LV EDV Index 49.91 ml/m2 LVOT/AV VTI 0.27 - Dimensionless index (DVI) ESV Mod BP 36.08 ml [ 14.00 - 42.00 ] MV E Peak German 1.9 m/s [ 0.6 - 1.3 ] EF Mod BP 64 % [ 54 - 74 ] MV A Peak German 1.2 m/s [ 1.0 - 1.2 ] LV GLS -16.6 % [ -25.0 - -18.0 ] MV E/A 1.5 ratio [ 0.8 - 1.5 ] LA Length 4C 4.29 cm MV Peak German 1.6 m/s LA Length 2C 4.32 cm MV Peak PG 10.24 mmHg LA Volume BP 50.23 ml MV Mean PG 8 mmHg LA Volume Index 24.74 ml/m2 [ 16.00 - 34.00 ] MV VTI 45.8 cm RV Base Dimen 2D 4.3 cm [ 2.5 - 4.2 ] MV Decel Time 260.23 msec [ 104.00 - 258.00 ] RA Volume 32.04 ml Med E` German 5.1 cm/sec [ 8.0 - 25.0 ] RA Volume Index 15.78 ml/m2 Lat E` German 8.2 cm/sec [ 10.0 - 25.0 ] AoR Diam 2D 3.13 cm [ 2.70 - 3.70 ] Average E/E` 28.57 Ao Root Index 1.54 cm/m2 [ 1.00 - 2.00 ] RV S` 9.26 cm/sec Asc Ao Diam 2D 3.94 cm PV Peak German 0.7 m/s [ 0.4 - 0.8 ] Asc Ao Index 1.94 cm/m2 PV Peak PG 1.96 mmHg Electronically Signed By: Greta Hollins MD 2025-01-08 10:04:28 CDT Electronically Amended By: Greta Hollins MD 01/13/2025 10:31:24 AM CDT [ADDENDUM] CC: Lena Priest M.D. Procedure Note Greta Hollins MD - 01/13/2025 [facility] Cardiac [place] [address] Transthoracic Echocardiographic Report ADDENDUM Patient Name: JACKELYN FUENTES L : 1955 (69y ) Gender: F Study Date: 01/08/2025 07:04:21 AM Ht(Inch): 64 Wt(Lb): 201.94 BSA: 2.03 Contract Project Manager: amanda hollis Location: [facility] Order Provider: EMMALENA Heart Rate: 72 BMI: 34.66 BP: 119 / 81 Ref Provider: LENA PRIEST PROCEDURES: Echocardiographic Report: Transthoracic complete echo with strain imagingand contrast, 2D, spectral and tissue Doppler, color flow Doppler, M-mode. Contrast: Contrast Enhancement was Employed: After initial imaging due tosub- optimal quality related to co-morbidity defined by patient's body habitus and dueto suboptimal image quality with inadequate visualization of at least 2 of 16 LV wallsegments in any view after initial imaging. Perflutren contrast was administered using thevolume necessary to obtain adequate images. 1.1 ml Optison Administered, (1.9 mlwasted). INDICATIONS: Z95.2 Presence of prosthetic heart valve, I71.21 Aneurysm of the ascendingaorta, without rupture, and R07.1 Chest pain on breathing. CONCLUSIONS: 1. Normal left ventricular size based on volume index. Concentric LVhypertrophy. The Ejection Fraction (Givens's) is measured at 64 %. Left ventriculardiastolic function is indeterminate due to mitral valve repair or replacement. The averageglobal longitudinal strain is borderline. 2. Right ventricular dilatation. Normal right ventricular systolicfunction. 3. Mild mitral valve regurgitation. The mean transmitral gradient is: 8mmHg. at a heart rate of 84 beats per minute. A bioprosthetic valve is present in themitral position with thickened leaflets. 4. The mean transaortic gradient is 23 mmHg. The aortic valve area by thecontinuity equation (using VTI) is 1 cm2. Aortic valve dimensionless index is 0.27. Abioprosthetic valve is present in the aortic position with thickened leaflets. 5. Normal pericardium without pericardial effusion. 6. Proximal ascending aorta measures 4.0 cm. 7. IVC is normal in size. ATTESTATION: I have personally reviewed and interpreted this study without fellow orresident. - DISCLAIMER: The study images and the final report will be retained in the patientchart by the Echo Laboratory for the legally required time period. This chart constitutesthe legal record of any testing performed. FINDINGS: Left Ventricle: Normal left ventricular size based on volume index.Concentric LV hypertrophy. Normal left ventricular systolic function. The EjectionFraction (Givens's) is measured at 64 %. Left ventricular diastolic function is indeterminatedue to mitral valve repair or replacement. The average global longitudinal strain isborderline. The LV global strain is: -16.6 %. Right Ventricle: Right ventricular dilatation. Normal right ventricularsystolic function. Left Atrium: The left atrium is normal in size. Right Atrium: The right atrium is normal in size. Mitral Valve: Mild mitral valve regurgitation. The mean transmitralgradient is: 8 mmHg. at a heart rate of 84 beats per minute. Specific MV StructureAbnormalities: A bioprosthetic valve is present in the mitral position with thickenedleaflets. Aortic Valve: Moderate aortic valve stenosis. The mean transaorticgradient is 23 mmHg. The aortic valve area by the continuity equation (using VTI) is 1 cm2.Aortic valve dimensionless index is 0.27. A bioprosthetic valve is present in theaortic position with thickened leaflets. Tricuspid Valve: Normal tricuspid valve structure. No tricuspidregurgitation. No tricuspid valve stenosis. Pulmonic Valve: Normal pulmonic valve structure. No pulmonicregurgitation. No pulmonic valve stenosis present. Pericardium: Normal pericardium without pericardial effusion. Aorta: Proximal ascending aorta measures 4.0 cm. Normal aortic root sizewhen indexed. IVC: IVC is normal in size. PASP: Unable to determine PASP due to inadequate TR jet. MEASUREMENTS: 2D/MM Value Range DopplerValue Range LVIDd 2D 3.95 cm [ 3.80 - 5.20 ] AV Peak Vel3.2 m/s [ 1.0 - 1.7 ] LVIDs 2D 2.62 cm [ 2.20 - 3.50 ] AV Peak PG39.79 mmHg IVSd 2D 1.35 cm [ 0.60 - 0.90 ] AV Mean PG23 mmHg LVPWd 2D 1.45 cm [ 0.60 - 0.90 ] AV VTI60.9 cm LV Thickness Ratio 0.9 LVOT Peak Vel0.8 m/s [ 0.7 - 1.1 ] LV FS 2D 33.77 % [ 27.00 - 45.00 ] LVOT Peak PG2.54 mmHg LV Mass 2D 207.18 g LVOT Mean PG1 mmHg LV Mass Index 2D 102.06 g/m2 LVOT VTI16.3 cm RWT 0.73 LVOT Diam2.18 cm EDV Mod BP 101.32 ml [ 46.00 - 106.00 ] MELLO VTI1.00 cm2 LV EDV Index 49.91 ml/m2 LVOT/AV VTI0.27 - Dimensionless index (DVI) ESV Mod BP 36.08 ml [ 14.00 - 42.00 ] MV E Peak Vel1.9 m/s [ 0.6 - 1.3 ] EF Mod BP 64 % [ 54 - 74 ] MV A Peak Vel1.2 m/s [ 1.0 - 1.2 ] LV GLS -16.6 % [ -25.0 - -18.0 ] MV E/A1.5 ratio [ 0.8 - 1.5 ] LA Length 4C 4.29 cm MV Peak Vel1.6 m/s LA Length 2C 4.32 cm MV Peak PG10.24 mmHg LA Volume BP 50.23 ml MV Mean PG8 mmHg LA Volume Index 24.74 ml/m2 [ 16.00 - 34.00 ] MV VTI45.8 cm RV Base Dimen 2D 4.3 cm [ 2.5 - 4.2 ] MV Decel Ojyx403.23 msec [ 104.00 - 258.00 ] RA Volume 32.04 ml Med E` Vel5.1 cm/sec [ 8.0 - 25.0 ] RA Volume Index 15.78 ml/m2 Lat E` Vel8.2 cm/sec [ 10.0 - 25.0 ] AoR Diam 2D 3.13 cm [ 2.70 - 3.70 ] Average E/E`28.57 Ao Root Index 1.54 cm/m2 [ 1.00 - 2.00 ] RV S`9.26 cm/sec Asc Ao Diam 2D 3.94 cm PV Peak Vel0.7 m/s [ 0.4 - 0.8 ] Asc Ao Index 1.94 cm/m2 PV Peak PG1.96 mmHg Electronically Signed By: Greta Hollins MD 2025-01-08 10:04:28 CDT Electronically Amended By: Greta Hollins MD 01/13/2025 10:31:24 AM CDT [ADDENDUM] CC: Lena Priest M.D. us Lena Priest MD CV ECHO PROCEDURES Leif addy Result - Final * CT Chest PE (CTA) W Contrast (01/06/2025 2:50 PM CDT) Anatomical Region Laterality Modality Body N/A Computed Tomogra phy 01/06/2025 3:04 PM CDT Impressions 01/06/2025 3:14 PM CDT 1. No acute pulmonary embolism 2. No acute findings in the chest. No pericardial effusion. Dictated by: Neto Murrell MD The radiology attending physician has personally reviewed this study, and had reviewed and/or edited this written report and agrees with it. 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 Dyspnea upon exertion and chest pain. TECHNIQUE: Computed tomographic images were acquired using a chest angiographic protocol optimized for pulmonary embolism. Contrast enhanced transaxial images were obtained following the intravenous administration of 100 ml of nonionic contrast. Multiplanar reformatted images and three-dimensional images were obtained on the 3-D workstation and sent to the PACS archival system. COMPARISON: CT chest 05/05/2020 FINDINGS: No axillary, supraclavicular, mediastinal, or hilar lymphadenopathy. The ascending thoracic aorta is upper limits of normal in size measuring up to 40 x 40 mm at the level of the main pulmonary artery and is unchanged. Main pulmonary artery is normal caliber. Left atrial enlargement. Postsurgical changes from aortic and mitral valve replacements. No pericardial effusion. Lungs are clear. No suspicious pulmonary nodule. No acute findings within the imaged upper abdomen. No suspicious osseous lesion. 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 Dyspnea upon exertion and chest pain. TECHNIQUE: Computed tomographic images were acquired using a chest angiographic protocol optimized for pulmonary embolism. Contrast enhanced transaxial images were obtained following the intravenous administration of 100 ml of nonionic contrast. Multiplanar reformatted images and three-dimensional images were obtained on the 3-D workstation and sent to the PACS archival system. COMPARISON: CT chest 05/05/2020 FINDINGS: No axillary, supraclavicular, mediastinal, or hilar lymphadenopathy. The ascending thoracic aorta is upper limits of normal in size measuring up to 40 x 40 mm at the level of the main pulmonary artery and is unchanged. Main pulmonary artery is normal caliber. Left atrial enlargement. Postsurgical changes from aortic and mitral valve replacements. No pericardial effusion. Lungs are clear. No suspicious pulmonary nodule. No acute findings within the imaged upper abdomen. No suspicious osseous lesion. IMPRESSION: 1. No acute pulmonary embolism 2. No acute findings in the chest. No pericardial effusion. Dictated by: Neto Murrell MD The radiology attending physician has personally reviewed this study, and had reviewed and/or edited this written report and agrees with it. Electronically signed by: Baltazar Torres MD, PHD us Lena Priest MD IMG CT PROCEDURES Brianne l Result * ECG 12 lead (01/06/2025 12:06 PM CDT) us Lena Priest MD ECG ORDERABLES Edited Result - Final * (ABNORMAL) eGFR (01/06/2025 11:48 AM CDT) eGFR 59(L) >=60 mL/min/1. 73 m2 Comment: Interpretive Data Reference Interval Normal >/= 90 mL/min/1.73m2 Mildly decreased* 60 - 89 mL/min/1.73m2 Mildly to moderately decreased 45 - 59 mL/min/1.73m2 Moderately to severely decreased 30 - 44 mL/min/1.73m2 Severely decreased 15 - 29 mL/min/1.73m2 Kidney Failure < 15 mL/min/1.73m2 *Relative to young adult level Estimated glomerular filtration rate is determined by the 2020 CKD-EPI equation recommended by the National Kid[employer] (A Unifying Approach to GFR Estimation: Recommendations of the NKF-ASK Task Force on Reassessing the Inclusion of Race in Diagnosing Kidney Disease, JASN 2020). The CKD-EPI equation should not be used for patients with unstable renal function and has not been validated in children and those over 70. Current interpretive data was last reviewed 2021. Blood 01/06/2025 11:4 8 AM CDT 01/06/2025 12:50 PM CDT us Lena Priest MD LAB BLOOD ORDERABLES F inal Result [facility] [place] [address] * Differential, auto (01/06/2025 11:48 AM CDT) Pathologist [facility] Neutrophil abs 3.54 1.50 - 6.50 K/cumm Imm gran abs 0.01 0.00 - 0.10 K/cumm [facility] Lymphocyte abs 1.01 0.80 - 3.30 K/cumm [facility] Monocyte abs 0.44 0.20 - 0.80 K/cumm [facility] Eosinophil abs 0.26 0.00 - 0.50 K/cumm [facility] Basophil abs 0.04 0.00 - 0.10 K/cumm [facility] Neutrophil pct 66.7 % [facility] Comment: Interpretive Data Percent cell count reference ranges are not reported, since discordance with absolute values may lead to misinterpretation of CBC data. Current Interpretive Data was last revised on 2018. Imm gran pct 0.2 % [facility] Comment: Interpretive Data Percent cell count reference ranges are not reported, since discordance with absolute values may lead to misinterpretation of CBC data. Current Interpretive Data was last revised on 2018. Lymphocyte pct 19.1 % [facility] Comment: Interpretive Data Percent cell count reference ranges are not reported, since discordance with absolute values may lead to misinterpretation of CBC data. Current Interpretive Data was last revised on 2018. Monocyte pct 8.3 % [facility] Comment: Interpretive Data Percent cell count reference ranges are not reported, since discordance with absolute values may lead to misinterpretation of CBC data. Current Interpretive Data was last revised on 2018. Eosinophil pct 4.9 % [facility] Comment: Interpretive Data Percent cell count reference ranges are not reported, since discordance with absolute values may lead to misinterpretation of CBC data. Current Interpretive Data was last revised on 2018. Basophil pct 0.8 % [facility] Comment: Interpretive Data Percent cell count reference ranges are not reported, since discordance with absolute values may lead to misinterpretation of CBC data. Current Interpretive Data was last revised on 2018. Blood 01/06/2025 11:4 8 AM CDT 01/06/2025 12:50 PM CDT Lena Priest MD LAB BLOOD ORDERABLES F inal Result [facility] Department [place] [address] * Pro B-type natriuretic peptide (01/06/2025 11:48 AM CDT) NT-proBNP 204 <=300 pg/mL Comment: Interpretive Comments: A. Dyspnea in Acute Care Setting All Ages: < 300 pg/ml, acute heart failure unlikely. < 50 yrs: 300 - 450 pg/ml, further investigation warranted. > 450 pg/ml, acute heart failure likely. 50 - 74 yrs: 300 - 900 pg/ml, further investigation warranted. > 900 pg/ml, acute heart failure likely . > or = 75 yrs: 450 - 1800 pg/ml, further investigation warranted. > 1800 pg/ml, acute heart failure likely. B. Non-acute Setting < 75 yrs < 125 pg/ml, rules out heart failure. > or = 125 pg/ml, further investigation warranted. > or = 75 yrs < 450 pg/ml, rules out heart failure. > or = 450 pg/ml, further investigation warranted. - Knowledge of each individual patient's NT-proBNP range may be more useful than using similar cut-points for every patient. Please note that marked elevations in NT-proBNP levels may be observed in state other than Left Ventricular Congestive Failure, including: acute coronary syndromes, right heart strain/failure (including pulmonary embolism and cor pulmonale), critical illness, renal failure, as well as advanced age. - References: 1. Kevin TORIBIO et.al. Eur Heart J. 2006:27:330-337. 2. Sohan SOLARES, Cedric SANTACRUZ. J. AM Gibson Cardiol: Cardiovasc Imag. 2009;2: 216- 225. Interpretive Data Last Revised Date: 2018. Blood 01/06/2025 11:4 8 AM CDT 01/06/2025 12:50 PM CDT us Lena Priest MD LAB BLOOD ORDERABLES F inal Result [facility] Department [place] [address] * (ABNORMAL) CBC with auto differential (01/06/2025 11:48 AM CDT) WBC 5.30 3.80 - 9.90 K/cumm Hgb 12.1 11.9 - 15.5 g/dL [facility] Hct 35.8 35.6 - 45.5 % [facility] Plt 144(L) 150 - 400 K/cumm [facility] MPV 10.6 9.1 - 12.3 fL [facility] RBC 3.80(L) 3.90 - 5.20 M/cumm [facility] MCV 94.2 81.3 - 96.4 fL [facility] MCH 31.8 27.1 - 33.3 pg [facility] MCHC 33.8 32.3 - 35.7 g/dL [facility] RDW CV 14.0 11.1 - 14.9 % [facility] RDW SD 47.2 35.7 - 48.1 fL [facility] NRBC abs 0.00 0.00 - 0.01 K/cumm [facility] Blood 01/06/2025 11:4 8 AM CDT 01/06/2025 12:50 PM CDT Lena Priest MD LAB BLOOD ORDERABLES F inal Result Performing Organization Address [facility] Co de Phone Number [facility] [place] [address] * D-dimer, quantitative (01/06/2025 11:48 AM CDT) D-Dimer 353 <=499 ng/mL FEU Comment: Interpretive data FDA approved the D-dimer, in conjunction with a low or moderate pretest probability score, to exclude venous thromboembolic events (VTE) (PE and DVT) in outpatients when the D-dimer result is < 500 ng/ml FEU. Evidence supports using an age-adjusted D-dimer cut-off for outpatients older than 50 (age x 10) to improve specificity without sacrificing sensitivity. Example: age 68, VTE cut-off 680 ng/ml FEU. References; Schouten HT et al. Brit Med J. 2013;346:f2492. Apolinar et al. Annals Int Med. 2015;163:701-11. Current interpretive data was last revised on 2019. Blood 01/06/2025 11:4 8 AM CDT 01/06/2025 12:50 PM CDT Lena Priest MD LAB BLOOD ORDERABLES F inal Result Performing Organization Address [facility] Co de Phone Number [facility] [place] [employer] [place] [address] * Basic metabolic panel (01/06/2025 11:48 AM CDT) Sodium 143 135 - 145 mmol/L Potassium, pl 4.4 3.3 - 4.9 mmol/L [facility] Chloride 107 97 - 110 mmol/L [facility] CO2 28 22 - 32 mmol/L [facility] Anion gap 8 2 - 15 mmol/L [facility] BUN 19 6 - 25 mg/dL [facility] Creatinine 1.04 0.60 - 1.10 mg/dL [facility] Glucose 111 70 - 199 mg/dL [facility] Comment: Interpretive Data Fasting glucose >/= 126 mg/dl is diagnostic for diabetes. Fasting is defined as no caloric intake for at least 8 hours. Fasting glucose between 100 mg/dl to 125 mg/dl is diagnostic of prediabetes. In a patient with classic symptoms of hyperglycemia or hyperglycemic crisis, a random glucose >/= 200 mg/dl is diagnostic for diabetes. In the absence of unequivocal hyperglycemia, results should be confirmed by repeat testing. The classification and Diagnosis of Diabetes Diabetes Care 2021; 46: S19-S40. Current interpretive data was last revised 2022. Calcium 9.5 8.5 - 10.3 mg/dL [facility] Blood 01/06/2025 11:4 8 AM CDT 01/06/2025 12:50 PM CDT Lena Priest MD LAB BLOOD ORDERABLES F inal Result Performing Organization Address City/State/[facility] Co de Phone [facility] [place] [address] from Last 3 Months Insurance A[employer] MEDICARE [facility] CHOICE PLUS [facility] ACCESS BLUE ACCESS [place] MEDICARE [facility] MEDICARE MEDICARE [facility] Advance Directives For more information, please contact: [phone] * Full Code (Latest Code Status on File) Date Activated Date Inactivated Comments 03/29/2021 7:35 AM 03/30/2021 6:59 PM * Full Code Date Activated Date Inactivated Comments 05/05/2020 9:22 PM 05/13/2020 7:45 PM * Full Code Date Activated Date Inactivated Comments 07/12/2019 1:41 PM 07/21/2019 10:53 AM * Full Code Date Activated Date Inactivated Comments 07/04/2019 3:26 PM 07/11/2019 5:50 PM * Full Code Date Activated Date Inactivated Comments 06/26/2019 4:59 AM 07/04/2019 3:26 PM 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
--- OUTSIDE RECORDS SUMMARY | 2025-04-01 11:50 | XMS_ITS | Encounter Summary ---
Author Organization [facility] Address [address] [place] [address] Phone Care Team Providers Care Audio Visual Aids Director Name Role Phone Gilbert Aguirre MD Primary Care Provider [phone] Gilbert Aguirre MD Unavailable [phone] Helen Sharp RN Unavailable Unavailab Chris Munguia MD Unavailable [phone] Encounter Details Date Type Department Care Team (Late st Contact Info) Description 07/29/2019 Telephone [facility] Cardiology [address] [facility] Advanced Medicine [address] [place] [address] [place] [address] Chris Priest MD [address] [place] [address] Social History Tobacco Use Types Packs/Day Years Used Date Smoking Tobacco: Never Smokeless Tobacco: Never Alcohol Use Standard Drinks/Week Comments No 0 (1 standard drink = 0.6 oz pur e alcohol) PHQ-2 Answer Date Recorded PHQ-2 Score 0 05/15/2019 Comments No Sex and Gender Information Value Date Recorded Sex Assigned at Not on file Legal Sex Female 1:50 AM BARIATRIC PROGRAM COORDINATOR Gender Identity Not on file Sexual Orientation [...] documented as of this encounter Care Teams Audio Visual Aids Director Relationship Specialty Start Date End Date Gilbert Aguirre MD PCP - General 07/14/19 Gilbert Aguirre MD Internal Medicine 07/14/19 Helen Sharp, EBER Registered Nurse Pain Management 10/08/17 Chris Priest MD Suction Roller Cardiology 07/09/19 documented as of this encounter
--- OUTSIDE RECORDS SUMMARY | 2025-04-01 11:50 | XMS_ITS | Encounter Summary ---
Author Organization [facility] Address [address] [facility] [address] [place] [address] Phone Care Team Providers Care Fish And Wildlife Warden Name Role Phone Gilbert Aguirre MD Primary Care Provider [phone] Gilbert Aguirre MD Primary Care Provider [phone] Gilbert Aguirre MD Primary Care Provider [phone] Gilbert Aguirre MD Unavailable [phone] Helen Sharp RN Unavailable Unavailab Chris Munguia MD Unavailable [phone] Encounter Details Date Type Department Care Team (Late st Contact Info) Description 07/05/2019 Ophth Exam [facility] Ophthalmology [address] [place] [address] [place] [id number] Henrique Cordero MD [address] [facility] [place] [address] Social History Tobacco Use Types Packs/Day Years Used Date Smoking Tobacco: Never Smokeless Tobacco: Never Alcohol Use Standard Drinks/Week Comments No 0 (1 standard drink = 0.6 oz pur e alcohol) PHQ-2 Answer Date Recorded PHQ-2 Score 0 05/15/2019 Comments No Sex and Gender Information Value Date Recorded Sex Assigned at Not on file Legal Sex Female 1:50 AM LIFE TRAINER Gender Identity Not on file Sexual Orientation [...] CWS, no overlying vitritis Normal Care Teams Fish And Wildlife Warden Relationship Specialty Start Date End Date Gilbert Aguirre MD PCP - General 02/01/17 07/08/19 Gilbert Aguirre MD PCP - General Internal Medicine 07/09/19 07/13/19 Gilbert Aguirre MD PCP - General 07/14/19 Gilbert Aguirre MD Internal Medicine 07/14/19 Helen Sharp, EBER Registered Nurse Pain Management 10/08/17 Chris Priest MD Lip And Gate Builder Cardiology 07/09/19 documented as of this encounter
--- OUTSIDE RECORDS SUMMARY | 2025-04-01 11:50 | XMS_ITS | Clinical Summary ---
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 No obvious signs of endocarditis on TTE/ANYA or PET scan but given recurrence of infection with same organisms in the presence of bioprosthetic heart valves it is likely these are seeded. Benefits of joint terminal attack controller suppression significantly outweigh the risks. Unfortunately, the Strep isolate is now intermediate to penicillins. Will likely need a assisted flouroquinolone such as levofloxacin. 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 She underwent bioprosthetic aortic and mitral valve replacement last year for this complication. With recurrent streptococcal bacteremia, there is concerned about recurrent endocarditis involving the bioprosthetic valves. Transthoracic echocardiogram did not demonstrate any vegetation. Plans are for transesophageal echocardiogram today. Her SC interval is okay on telemetry. She has no features of heart failure. She has no significant valve dysfunction on echocardiogram yesterday. She is hemodynamically stable without any ongoing fevers at present. She is on antibiotics at the direction of the Infectious Disease Service. Await the results of the ANYA. H/O aortic valve replacement 09/12/2019 Assessment & Plan (10/16/2019 1:27 PM FOOD OPERATIONS MANAGER): Patient meets criteria for pneumococcal vaccination given history of valvular disease and replacement. Vaccination given in clinic today. residential (current) use of antibiotics 9 Assessment & [...] 08/14/2019 Assessment & Plan (08/14/2019 2:00 PM FOOD OPERATIONS MANAGER): Possibly viral/allergic Lungs clear to ausculation If the cough persists much longer, advised patient to check in with medical administrative technician to see if Cozaar might be contributing [...] concerns Assessment & Plan (11/07/2023 1:58 PM FOOD OPERATIONS MANAGER): - Doing well on suppressive cefdinir [...] concerns Assessment & Plan (10/13/2022 8:38 AM FOOD OPERATIONS MANAGER): - Doing well on cefdinir suppression [...] - I asked that she contact her medical administrative technician (Dr. Priest) if she continues to have [...] concerns Assessment & Plan (08/12/2020 7:22 PM FOOD OPERATIONS MANAGER): - Doing well on interview today [...] without suppressive antibiotics. Risks and benefits of joint terminal attack controller antibiotic suppression discussed, side effects of flouroquinolones [...] concerns Assessment & Plan (10/16/2019 1:26 PM FOOD OPERATIONS MANAGER): Completed 7 weeks IV ceftriaxone from [...] swelling. 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 - Ceftriaxone IV q 12 hours (ACTIVITIES MANAGER dosing) X6 weeks 2 osteo of spine [...] mitis. - Ceftriaxone IV q 12 hours (ACTIVITIES MANAGER dosing) X6 weeks 2/2 osteo of spine [...] 06/26. - Ceftriaxone IV q 12 hours (ACTIVITIES MANAGER dosing) X6 weeks 2/2 osteo of spine [...] 06/26. - Ceftriaxone IV q 12 hours (ACTIVITIES MANAGER dosing) X6 weeks 2 osteo of spine - consult ophthalmology on 07/05 to evaluate for concern of floaters that began within the last 48 hours - NSGY following for brain abscess with rupture c/b meningitis - f/u cultures sent from OR - appreciate any additional ID reqs Assessment & Plan (07/04/2019 5:20 PM CDT): - Ceftriaxone IV q 12 hours (ACTIVITIES MANAGER dosing) X6 weeks 2/ osteo of spine [...] following - Cont CTX 2g 12h for ACTIVITIES MANAGER dosing Assessment & Plan (07/03/2019 8:11 AM [...] following - Cont CTX 2g 12h for ACTIVITIES MANAGER dosing Assessment & Plan (07/01/2019 2:10 PM [...] following - Cont CTX 2g 12h for ACTIVITIES MANAGER dosing Assessment & Plan (06/30/2019 6:04 PM [...] Assessment & Plan (06/30/2019 3:07 PM CDT): 102 BCx +strep mitis, 10/3 BCx NGTD. TTE: MV & AV vegetations. C/b L4-L5 discitis and brain septic emboli & meningitis. Bone bx 10/3 NGTD. Panorex neg. Carotid Dopplers negative. - Cardiac surgery consulted: CT TAVR & bMRI performed. Possible MVR tomorrow. - ANYA today - ID following - Cont CTX 2g 12h for ACTIVITIES MANAGER dosing Assessment & Plan (06/29/2019 10:20 AM CDT): 10/2 BCx +strep mitis, 10/3 BCx NGTD. TTE: MV & AV vegetations. C/b L4-L5 discitis and brain septic emboli & meningitis. Bone bx 10/3 NGTD. Panorex neg. - Cardiac surgery consulted: CT TAVR & bMRI performed, carotid dopplers pending - ANYA Mon - ID following - Cont CTX 2g 12h for ACTIVITIES MANAGER dosing Assessment & Plan (06/28/2019 10:41 AM [...] and beta cony PICC placed for IVAB- joint terminal attack controller Assessment & Plan (07/07/2019 10:20 AM CDT): [...] with AR and . Follows with Dr. Priets. TTE and ANYA with vegetations as above. [...] aortic valve with AR. Follows with Dr. rPiest -TTE as above with vegetations -Dr. Priest [...] (06/30/2019): Added automatically from request for surgery [id number] Assessment & Plan (07/08/2019 11:34 AM CDT): [...] 02/09/2021 Assessment & Plan (10/16/2019 1:29 PM FOOD OPERATIONS MANAGER): Patient reports recent onset rhinorrhea and sneezing. She is afebrile. She has already had flu shot. Advise rest, hydration, and symptomatic management. Pruritic erythematous rash 08/14/2019 0 02/09/2021 Assessment & Plan (08/14/2019 1:57 PM FOOD OPERATIONS MANAGER): Possible drug allergy, but appearance of [...] Plan (07/05/2019 10:05 PM CDT): Extubated to NC overnight. O2 weaned to off this am. [...] tumor protocol. Appt 08/07/19 at 11:30 at [facility] 6b Discharge instructions must include: Neurosx clinical appointment date and phone number Appointment Scheduling: Doctor s Office: Dr. Dmitri Mart, After hours emergency: or Assessment & Plan (07/06/2019 10:45 AM CDT): Once extubated pt lethargic. At times noted to have garbled speech. [facility]ICU pos. Slight weakness noted in right senior games technician compared to left. HCT performed yesterday negative for acute intracranial process. -Neuro checks Q4hr Neurosurgery team and Dr Mart has evaluated the pt for cerebral microabscesses. It is being managed non-operatively with observation. The patient should be seen in Neurosurgery clinic in 4-6 weeks with an MRI of the brain, brain tumor protocol. Appt 08/07/19 at 11:[address] [facility] 6b Discharge instructions must include: Neurosx clinical appointment date and phone number Appointment Scheduling: Doctor s Office: Dr. Dmitri Mart, After hours emergency: or Assessment & Plan (07/05/2019 10:08 PM CDT): Once extubated pt lethargic. At times noted to have garbled speech. CAMICU pos. Slight weakness noted in right senior games technician compared to left. -HCT noncontrast -Neuro checks Q4hr HCT negative -discussed keppra need/dosing with neurosurgery, keppra discontinued Neurosurgery team and Dr Mart has evaluated the pt for cerebral microabscesses. It is being managed non-operatively with observation. The patient should be seen in Neurosurgery clinic in 4-6 weeks with an MRI of the brain, brain tumor protocol. Appt 08/07/19 at 11:[address] [facility] 6b Discharge instructions must include: Neurosx clinical [...] tumor protocol. Appt 08/07/19 at 11:30 at [facility] 6b Discharge instructions must include: [...] 06/27/2019/09/2023 Assessment & Plan (10/16/2019 1:26 PM FOOD OPERATIONS MANAGER): As above. Assessment & Plan (08/14/2019 1:52 PM FOOD OPERATIONS MANAGER): L4-5 spinal osteomyelitis D/C IV Ceftriaxone [...] with the following recommendations: -they have contacted [facility] for LSO -PT/OT -WBAT, no specific [...] L spine with MRI prompting admission to [facility]. Seen by ortho with no surgical intervention. Bone biopsy from 06/26 NG. Recommendations: - Will require at least 6 weeks of IV therapy for osteomyelitis of spine - ESR/CRP to be obtained at weeks 3 & 6 of therapy - See endocarditis Assessment & Plan (06/27/2019 10:23 AM CDT): L4/L5 discitis/osteomyelitis on CT & MRI. 10 BCx +streptococcus. Source is likely bacteremia, c/f possible endocarditis. H/o bicuspid AV (kaguyuk). No hardware or instrumentation. 06/26 bone biopsy, cx NGTD. - Cont vanc/CTX/flagyl for now, f/u BCx & tissue cx. - ID c/s - F/u ortho spine recs. - TTE Encounters Date Type Department Care Team Description 01/15/2025 Telephone [facility] Cardiology [address] [facility] [address]th [place] [address] [place] [address] Lena Priest MD 01/13/2025 Telephone [facility] Cardiology [address] [facility] [address]th [place] [address] [place] [address] Lena Priest MD Echo review 01/08/2025 6:34 AM CDT - 01/08/2025 11:59 PM CDT Hospital Encounter [facility] Cardiac Diagnostic Lab [address] [facility] [facility] [address] [place] [address] H/O aortic valve replacement; Aneurysm of ascending aorta without rupture; Chest pain on breathing Discharge Disposition: Discharge to home or self care 01/08/2025 Telephone [facility] Cardiology [address] [place] [address] 8th [place] [address] [place] [address] Lena Priest MD 01/08/2025 Results Follow-Up [facility] Cardiology [address] [place] [address] [place] [address] [place] [address] Lena Priest MD Transthoracic Echo (TTE) Complete W Doppler/CF 01/06/2025 1:54 PM CDT - 01/06/2025 11:59 PM CDT Hospital Encounter [facility] ([facility] [address] [place] [address] Lena Priest MD Chest pain on breathing Discharge Disposition: Discharge to home or self care 01/06/2025 12:30 PM CDT Office Visit [facility] Cardiology [address] [place] [address] [place] [address] Lena Priest MD Palpitations (Primary Dx); H/O aortic valve replacement; Essential hypertension; Aneurysm of ascending aorta without rupture; Chest pain on breathing 01/06/2025 11:50 AM CDT Lab [facility] ([facility] [address] [place] [phone] Shortness of breath; High risk medications (not anticoagulants) long-term use 01/06/2025 Results Follow-Up [facility] Cardiology [address] [place] [address] [place] [address] Lena Priest MD ECG 12 lead 01/05/[address] [place] [address] Lena Priest MD Portal message with symptoms from Last 3 Months Immunizations Immunization Administration Dates Next Due Influenza, [...] 05/21/2021 ZOSTER LIVE 02/06/2017 ZOSTER Recombinant 07/30/2021,05/21/2021 Surgical History Surgery Date Site/Laterality Comments BIOPSY DEEP BONE 06/26/2019 N/A IR PICC LINE PLACEMENT > 5 YEARS 07/21/2019 N/A AORTIC VALVE REPLACEMENT MITRAL VALVE REPLACEMENT FACET BLOCK LUMBAR SACRAL 1 LEVEL LEFT 09/22/2021 Le ft Medical History Medical History Date Comments Degenerative disc disease at L5-S1 level Aortic valve disease GERD (gastroesophageal reflu x disease) Essential hypertension 06/25/2019 Brain abscess 06/29/201906/27 brain MRI r eat: Well-defined rim-enhancing diffusion restricting right splenial lesion. Additional foci of parenchymal enhancement without discrete lesion are scattered within the cerebral and cerebellar hemispheres some of which have associated focus of susceptibility. Leptomeningeal and ependymal enhancement. Consolation of findings favor meningitis, septic emboli with development of absc Family History Medical History Relation Name Comments Heart attack Father Family history of myocardial infarction - (Added by TW Conv) Anesthesia problems Neg Hx Relation Name Status Comments Father Social History Tobacco Use Types Packs/Day Years [...] on file Legal Sex Female 1:50 AM FOOD OPERATIONS MANAGER Gender Identity Not on file Sexual Orientation Not on file Obstetrics History Last Filed Vital Signs Vital Sign Reading Time Taken Comments Blood Pressure 119/81 01/06/2025 11:57 AM CDT Pulse 86 01/06/2025 11:57 AM CDT Temperature 36.8 C (98.3 F) 05/22/2024 8:54 AM CDT Respiratory Rate 10 09/22/2021 12:35 PM FOOD OPERATIONS MANAGER Oxygen Saturation 95% 01/06/2025 11:57 AM CDT Inhaled Oxygen Concentration - - Weight 91.6 kg (202 lb) 01/06/2025 11:57 AM CDT Height 162.6 cm (5' 4) 01/06/2025 11:57 AM CDT Body Mass Index 34.67 01/06/2025 11:57 AM CDT Plan of Treatment Health Maintenance Due Date Last Done Comments Breast Cancer Screening-Mammogram 1955 Colon Cancer Screening-Colonoscopy 1955 Hepatitis C Screening 1955 Osteoporosis Screening-Bone Density Scan 1955 DTaP/Tdap/Td Vaccine (1 - Tdap) 12/15/1967 Hepatitis B Screening 1974 Depression Screening 06/25/2020 06/25/2019, 06/25/2019, 10/09/2018 Pneumococcal vaccine 65+ (2 of 2 - PCV) 10/16/2020 10/16/2019 Well Visit 65+ 2021 Fall Risk Assessment 09/22/2022 09/22/2021 Covid-19 Vaccine (6 - 2023-2 5 season) 2024 11/13/2021, 11/13/2021, 05/24/2021, Additional history exists Influenza Vaccine (#1) 2025 , 06/16/2023, 05/21/2021, Additional history exists Zoster Vaccine Completed 07/30/2021, 04/25, 02/06/2017 Goals Goal Patient Goal Type Associated Problems Recent Progress Patient-Stated? Author [facility] Yes Jolly Broderick, RN Note: Pt would like to be more active without a lot of pain. Medical Devices Implanted Type Area School Operations Manager Device Identifier Shelf Expiration Date Model / Serial / Lot [employer]avarria [employer] [id number] DebraJoseAlexandre s [place] Magna 29mm Bioprosthesis Ease Heart - [id number] - [id number] Implanted:Qty: 1 on 07/04/2019 by Galileo Boothe MD at [facility] N/A: Heart [employer] 01/27/2023 [id number] / [id number] / [employer] [id number] Debra-Edward s [place] Magna Ease 23mm Bioprosthesis - [id number] - [id number] Implanted:Qty: 1 on 07/04/2019 by Galileo Boothe MD at [facility] N/A: Heart [employer] 04/02/2023 [id number] / [id number] / Procedures Procedure Name Priority Date/Time Associated [...] AM CDT Narrative 01/08/2025 10:05 AM CDT [facility] Cardiac [place] [address] Transthoracic Echocardiographic Report ADDENDUM Patient Name: JACKELYN FUENTES L : 1955 (69y ) Gender: F Study Date: 01/08/2025 07:04:21 AM Ht(Inch): 64 Wt(Lb): 201.94 BSA: 2.03 Lab Courier: amanda hollis Location: [facility] Order Provider: LENA PRIEST Heart Rate: 72 [...] Procedure Note Greta Hollins MD - 01/13/2025 [facility] [place] [address] [place] [address] Transthoracic Echocardiographic Report ADDENDUM Patient Name: JACKELYN FUENTES L : 1955 (69y ) Gender: F Study Date: 01/08/2025 07:04:21 AM Ht(Inch): 64 Wt(Lb): 201.94 BSA: 2.03 Lab Courier: amanda ohllis Location: [facility] Order Provider: LENA PRIEST Heart Rate: 72 BMI: 34.66 BP: 119 / 81 Ref Provider: JER PRIESTN PROCEDURES: Echocardiographic Report: Transthoracic complete echo with [...] [ 2.5 - 4.2 ] MV Decel [id number] msec [ 104.00 - 258.00 ] RA [...] of Race in Diagnosing Kidney Disease, JASN 202). The CKD-EPI equation should not be used for patients with unstable renal function and has not been validated in children and those over 70. Current interpretive data was last reviewed 2021. Blood 01/06/2025 11:4 8 AM CDT 01/06/2025 12:50 PM CDT us Lena Priest MD LAB BLOOD ORDERABLES F inal Result [facility] [address] [facility] Department [place] [address] * Differential, auto (01/06/2025 11:48 AM CDT) Pathologist [facility] Neutrophil abs 3.54 1.50 - 6.50 K/cumm Imm gran abs 0.01 0.00 - 0.10 K/cumm [facility] Lymphocyte abs 1.01 0.80 - 3.30 K/cumm [facility] Monocyte abs 0.44 0.20 - 0.80 K/cumm [facility] Eosinophil abs 0.26 0.00 - 0.50 K/cumm [facility] Basophil abs 0.04 0.00 - 0.10 K/cumm [facility] Neutrophil pct 66.7 % [facility] Comment: Interpretive Data Percent cell count reference ranges are not reported, since discordance with absolute values may lead to misinterpretation of CBC data. Current Interpretive Data was last revised on 2018. Imm gran pct 0.2 % [facility] Comment: Interpretive Data Percent cell count reference ranges are not reported, since discordance with absolute values may lead to misinterpretation of CBC data. Current Interpretive Data was last revised on 2018. Lymphocyte pct 19.1 % [facility] Comment: Interpretive Data Percent cell count reference ranges are not reported, since discordance with absolute values may lead to misinterpretation of CBC data. Current Interpretive Data was last revised on 2018. Monocyte pct 8.3 % [facility] Comment: Interpretive Data Percent cell count reference ranges are not reported, since discordance with absolute values may lead to misinterpretation of CBC data. Current Interpretive Data was last revised on 2018. Eosinophil pct 4.9 % [facility] Comment: Interpretive Data Percent cell count reference ranges are not reported, since discordance with absolute values may lead to misinterpretation of CBC data. Current Interpretive Data was last revised on 2018. Basophil pct 0.8 % [facility] Comment: Interpretive Data Percent cell count reference ranges are not reported, since discordance with absolute values may lead to misinterpretation of CBC data. Current Interpretive Data was last revised on 2018. Blood 01/06/2025 11:4 8 AM CDT 01/06/2025 12:50 PM CDT us Lena Priest MD LAB BLOOD ORDERABLES F inal Result [facility] [address] [facility] Department [place] [address] * Pro B-type natriuretic peptide (01/06/2025 11:48 [...] et.al. Eur Heart J. 2006:27:330-337. 2. Sohan RW, Cedric SANTACRUZ. J. AM Gibson Cardiol: Cardiovasc Imag. 2009;2: 216- 225. Interpretive Data Last Revised Date: 2018. Blood 01/06/2025 11:4 8 AM CDT 01/06/2025 12:50 PM CDT Lena Priest MD LAB BLOOD ORDERABLES F inal Result [facility] [address] [facility] Department [place] [address] * (ABNORMAL) CBC with auto differential (01/06/2025 11:48 AM CDT) WBC 5.30 3.80 - 9.90 K/cumm Hgb 12.1 11.9 - 15.5 g/dL [facility] Hct 35.8 35.6 - 45.5 % [facility] Plt 144(L) 150 - 400 K/cumm [facility] MPV 10.6 9.1 - 12.3 fL [facility] RBC 3.80(L) 3.90 - 5.20 M/cumm [facility] MCV 94.2 81.3 - 96.4 fL [facility] MCH 31.8 27.1 - 33.3 pg [facility] MCHC 33.8 32.3 - 35.7 g/dL [facility] RDW CV 14.0 11.1 - 14.9 % [facility] RDW SD 47.2 35.7 - 48.1 fL [facility] NRBC abs 0.00 0.00 - 0.01 K/cumm [facility] Blood 01/06/2025 11:4 8 AM CDT 01/06/2025 12:50 PM CDT Lena Priest MD LAB BLOOD ORDERABLES F inal Result Performing Organization Address [facility] Co de Phone Number [facility] [employer] [place] [address] * D-dimer, quantitative (01/06/2025 11:48 AM CDT) [...] ORDERABLES F inal Result Performing Organization Address [facility] Co de Phone Number [facility] [employer] [place] [address] * Basic metabolic panel (01/06/2025 11:48 AM CDT) Sodium 143 135 - 145 mmol/L Potassium, pl 4.4 3.3 - 4.9 mmol/L [facility] Chloride 107 97 - 110 mmol/L [facility] CO2 28 22 - 32 mmol/L [facility] Anion gap 8 2 - 15 mmol/L [facility] BUN 19 6 - 25 mg/dL [facility] Creatinine 1.04 0.60 - 1.10 mg/dL [facility] Glucose 111 70 - 199 mg/dL [facility] Comment: Interpretive Data Fasting glucose >/= 126 [...] 2022. Calcium 9.5 8.5 - 10.3 mg/dL [facility] Blood 01/06/2025 11:4 8 AM CDT 01/06/2025 12:50 PM CDT us Lena Priest MD LAB BLOOD ORDERABLES F inal Result [facility] Department of [place] [address] from Last 3 Months Insurance [facility] Member Subscriber Plan / Payer (Ef fective 2022-Present) Name:Jackelyn Fuentes Relation to Subscriber:Self Name:Jackelyn Fuentes Payer ID:[id number] Group ID:Not on file Type:COMMERCIAL Address: [facility] [id number] [place] [id number] MEDICARE [facility] CHOICE PLUS ANTH ACCESS BLUE ACCESS OOS MEDICARE MEDICARE MEDICARE AARP Advance Directives For more information, please contact: [phone] * Full Code (Latest Code Status on [...] 4:59 AM 07/04/2019 3:26 PM Care Teams Barrel Handler Relationship Specialty Start Date End Date Gilbert Aguirre MD PCP - General 07/14/19 Gilbert Aguirre MD Internal Medicine 07/14/19 Helen Sharp RN Registered Nurse Pain Management 10/08/17 Lena Priest MD Erp Consultant Cardiology 07/09/19
== END 2025-04-01 11:47 | disposition home or self-care (01) ==
PROVIDERS: PCP Internal Medicine; Visit Provider Nurse Practitioner Family
DX: K44.9 Diaphragmatic hernia without obstruction or gangrene (principal)
CPT/HCPCS: 74246

== ENCOUNTER 2025-06-12 05:16 | Outpatient (CLI) | payer MEDICARE, SELFPAY ==
--- NOTE | 2025-06-12 06:45 | SUR.OPER ---
Patient brought to GI Lab. Instructions for patient undergoing Capsule Endoscopy reviewed with patient. Consent form signed. Sensor array applied to patient's abdomen and connected to recorded. Patient swallowed capsule with 16 ozs of water infused with Simethicone. Patient instructed they may have clear liquids at 8:30 this AM and eat or drink at 10:30 this AM. Patient instructed to return to GI Lab at 1500 this afternoon for removal of recording device and to call [phone] or to return to the hospital if any nausea and vomiting or abdominal pain is experienced.
--- NOTE | 2025-06-12 14:57 | SUR.PREOP ---
Patient returned to the GI Lab at 1455 for recorder box removal. Patient voiced no complaints. States they have understanding of instructions. Patient left ambulatory.
== END 2025-06-12 06:35 | disposition home or self-care (01) ==
PROVIDERS: PCP Internal Medicine; Referring Provider Nurse Practitioner Family; Visit Provider Internal Medicine Gastroenterology
PROC: (CPT 91110; principal; 2025-06-12 07:00)
DX: Z01.818 Encounter for other preprocedural examination (principal)
CPT/HCPCS: 91110

== ENCOUNTER 2025-09-07 11:12 | Outpatient (CLI) | payer MEDICARE, SELFPAY ==
--- NOTE | ~2025-09-07 | MM_ITS ---
EXAMINATION: MM screening [facility] w abilio HISTORY: Screening TECHNIQUE: Craniocaudal and mediolateral oblique 3-D tomosynthesis images were obtained and synthetic 2-D images were generated. CAD analysis was submitted and interpreted. COMPARISON: Comparison to multiple prior studies sequentially, with oldest reviewed study dated , 04/21/2020 BREAST PARENCHYMAL COMPOSITION: Not Dense: There are scattered areas of fibroglandular density. FINDINGS: There is no evidence of suspicious mass, calcification, or architectural distortion to suggest malignancy in either breast. IMPRESSION: 1. No mammographic evidence of malignancy. 2. Recommend routine screening mammography in one year. BI-RADS Category 1: Negative Reviewed, dictated and finalized at location A. [employer]
== END 2025-09-07 11:13 | disposition home or self-care (01) ==
LOC: ANHFOHIMG 11:15
PROVIDERS: PCP Internal Medicine; Visit Provider Obstetrics & Gynecology Gynecology
DX: Z12.31 Encounter for screening mammogram for malignant neoplasm of breast (principal)
CPT/HCPCS: 77063; 77067